=== PATIENT | male | born 1960 | race Caucasian/White ===

== ENCOUNTER 2017-09-23 04:51 | Observation (INO) | payer BC ==
[2017-09-23] MEDS ORDERED: NITROGLYCERIN OINT 1 INCH/GM PACKET TOPICAL STA (05:04)
[2017-09-23] MEDS ORDERED: ASPIRIN 81 MG PO STA (05:04)
--- NOTE | 2017-09-23 05:07 | ED ---
General Adult HPI - General Chief complaint: Chest Pain Stated complaint: Chest Pain Time Seen by Provider: 09/23/17 04:51 Source: patient, RN notes reviewed Mode of arrival: wheelchair Limitations: no limitations - History of Present Illness Initial comments: This a 56-year-old male who has a past medical history significant for coronary artery disease. Patient states she had a cardiac cath about 5 years ago they told him he had a 78% blockage. Patient states he also has a strong family history of heart disease. Patient denies diabetes and high blood pressure however he states he has been spoken to about his cholesterol and is trying to control with his diet. Patient states that about midnight tonight he started having chest pain radiated to his left shoulder and it came in waves with the most intense pain lasting 5 seconds. Patient states once that goes away he has a constant pressure on his chest with some shortness of breath. Patient denies any diaphoresis. Patient denies any nausea. Patient denies abdominal pain patient denies vomiting or diarrhea recently. Patient denies any recent fever chills or cough. Patient denies a headache. Patient denies numbness weakness. Patient denies lightheadedness dizziness or near syncopal episode. - Related Data Home Medications Medication Instructions Recorded Confirmed Gabapentin [Neurontin] 800 mg PO TID 01/26/16 01/26/16 Hydrocodone/Acetaminophen 1 tab PO Q6HR PRN 01/26/16 01/26/16 [Hydrocodon-Acetaminophn 10-325] Previous Rx's Medication Instructions Recorded Atorvastatin [Lipitor] 20 mg PO HS #30 tablet 01/28/16 Allergies Allergy/AdvReac Type Severity Reaction Status Date / Time Penicillins Allergy Unknown Verified 09/23/17 05:00 Childhood Review of Systems ROS Statement: Those systems with pertinent positive or pertinent negative responses have been documented in the HPI. ROS Other: All systems not noted in ROS Statement are negative. Past Medical History Past Medical History: Myocardial Infarction ([place]) Additional Past Medical History / Comment(s): scarlet fever, back pain Last Myocardial Infarction Date:: 2011 History of Any Multi-Drug Resistant Organisms: None Reported Past Surgical History: Orthopedic Surgery Additional Past Surgical History / Comment(s): vasectomy, bilateral rotator cuff repair, heart catheterization Past Anesthesia/Blood Transfusion Reactions: No Reported Reaction Past Psychological History: No Psychological Hx Reported Smoking Status: Former smoker Past Alcohol Use History: Occasional Past Drug Use History: None Reported - Past Family History Father Additional Family Medical History / Comment(s): Father at age 93 after myocardial infarction with history of previous myocardial infarctions. Mother Additional Family Medical History / Comment(s): Mother at age 56 from asthma attack and possibly having a myocardial infarction at the same time. Brother(s) Additional Family Medical History / Comment(s): He has one brother with no major medical problems. Patient does not have any sisters. He has one son and one daughter with no major medical problems. General Exam - General Exam Comments Initial Comments: GENERAL: Patient is well-developed and well-nourished. Patient is nontoxic and well- hydrated and is in mild distress. ENT: Neck is soft and supple. No significant lymphadenopathy is noted. Oropharynx is clear. Moist mucous membranes. Neck has full range of motion without eliciting any pain. EYES: The sclera were anicteric and conjunctiva were pink and moist. Extraocular movements were intact and pupils were equal round and reactive to light. Eyelids were unremarkable. PULMONARY: Unlabored respirations. Good breath sounds bilaterally. No audible rales rhonchi or wheezing was noted. CARDIOVASCULAR: There is a regular rate and rhythm without any murmurs gallops or rubs. ABDOMEN: Soft and nontender with normal bowel sounds. No palpable organomegaly was noted. There is no palpable pulsatile mass. SKIN: Skin is clear with no lesions or rashes and otherwise unremarkable. NEUROLOGIC: Patient is alert and oriented x3. Cranial nerves II through XII are grossly intact. Motor and sensory are also intact. Normal speech, volume and content. Symmetrical smile. MUSCULOSKELETAL: Normal extremities with adequate strength and full range of motion. LYMPHATICS: No significant lymphadenopathy is noted PSYCHIATRIC: Normal psychiatric evaluation. Normal interpersonal interactions appears functionally intact in deals appropriately with others. No signs of depression. No signs of anxiety. Limitations: no limitations Course Vital Signs 09/23/17 09/23/17 09/23/17 04:57 05:03 05:55 Temperature 97.2 F L 98.4 F Pulse Rate 76 80 Pulse Rate [ 68 Rn Circulating ] Respiratory 15 18 Rate Blood Pressure 175/86 127/77 O2 Sat by Pulse 98 98 Oximetry Medical Decision Making - Medical Decision Making EKG shows normal sinus rhythm at 75 bpm SC interval is on a 64 QRS is 96 Q-T intervals 386 QTC is 431 per patient's EKG shows no ST segment elevation or depression or T wave abnormalities are noted. Chest x-ray shows no acute abnormality. Patient stated the Nitropaste seem to relieve some of the pressure in his chest. Patient was drinking some unstable angina so I gave him heparin. I spoke with the primary medical care doctor and I admitted the patient I wrote admitting orders I consult cardiology and I continue the heparin Nitropaste and aspirin on the floor. - Lab Data Result diagrams: 09/23/17 05:04 09/23/17 05:04 Lab Results 09/23/17 09/23/17 09/23/17 Range/Units 05:04 05:04 05:04 WBC 8.6 (3.8-10.6) k/uL RBC 5.01 (4.30-5.90) m/uL Hgb 14.5 (13.0-17.5) gm/dL Hct 44.9 (39.0-53.0) % MCV 89.6 (80.0-100.0) fL MCH 28.9 (25.0-35.0) pg MCHC 32.3 (31.0-37.0) g/dL RDW 14.3 (11.5-15.5) % Plt Count 217 (150-450) k/uL Neutrophils % 56 % Lymphocytes % 35 % Monocytes % 4 % Eosinophils % 2 % Basophils % 1 % Neutrophils # 4.8 (1.3-7.7) k/uL Lymphocytes # 3.1 (1.0-4.8) k/uL Monocytes # 0.4 (0-1.0) k/uL Eosinophils # 0.2 (0-0.7) k/uL Basophils # 0.0 (0-0.2) k/uL PT (9.0-12.0) sec INR (<1.2) APTT (22.0-30.0) sec Sodium 140 (137-145) mmol/L Potassium 4.5 (3.5-5.1) mmol/L Chloride 107 (98-107) mmol/L Carbon Dioxide 23 (22-30) mmol/L Anion Gap 10 mmol/L BUN 16 (9-20) mg/dL Creatinine 0.83 (0.66-1.25) mg/dL Est GFR (MDRD) Af Amer >60 (>60 ml/min/1.73 sqM) Est GFR (MDRD) Non-Af >60 (>60 ml/min/1.73 sqM) Glucose 131 H (74-99) mg/dL Calcium 9.6 (8.4-10.2) mg/dL Magnesium 2.0 (1.6-2.3) mg/dL Total Bilirubin 0.5 (0.2-1.3) mg/dL AST 24 (17-59) U/L ALT 28 (21-72) U/L Alkaline Phosphatase 84 (38-126) U/L Total Creatine Kinase 97 (55-170) U/L CK-MB (CK-2) 0.9 (0.0-2.4) ng/mL CK-MB (CK-2) Rel Index 0.9 Troponin I <0.012 (0.000-0.034) ng/mL Total Protein 6.9 (6.3-8.2) g/dL Albumin 4.2 (3.5-5.0) g/dL 09/23/17 Range/Units 05:04 WBC (3.8-10.6) k/uL RBC (4.30-5.90) m/uL Hgb (13.0-17.5) gm/dL Hct (39.0-53.0) % MCV (80.0-100.0) fL MCH (25.0-35.0) pg MCHC (31.0-37.0) g/dL RDW (11.5-15.5) % Plt Count (150-450) k/uL Neutrophils % % Lymphocytes % % Monocytes % % Eosinophils % % Basophils % % Neutrophils # (1.3-7.7) k/uL Lymphocytes # (1.0-4.8) k/uL Monocytes # (0-1.0) k/uL Eosinophils # (0-0.7) k/uL Basophils # (0-0.2) k/uL PT 9.7 (9.0-12.0) sec INR 1.0 (<1.2) APTT 23.4 (22.0-30.0) sec Sodium (137-145) mmol/L Potassium (3.5-5.1) mmol/L Chloride (98-107) mmol/L Carbon Dioxide (22-30) mmol/L Anion Gap mmol/L BUN (9-20) mg/dL Creatinine (0.66-1.25) mg/dL Est GFR (MDRD) Af Amer (>60 ml/min/1.73 sqM) Est GFR (MDRD) Non-Af (>60 ml/min/1.73 sqM) Glucose (74-99) mg/dL Calcium (8.4-10.2) mg/dL Magnesium (1.6-2.3) mg/dL Total Bilirubin (0.2-1.3) mg/dL AST (17-59) U/L ALT (21-72) U/L Alkaline Phosphatase (38-126) U/L Total Creatine Kinase (55-170) U/L CK-MB (CK-2) (0.0-2.4) ng/mL CK-MB (CK-2) Rel Index Troponin I (0.000-0.034) ng/mL Total Protein (6.3-8.2) g/dL Albumin (3.5-5.0) g/dL Critical Care Time Critical Care Time: Yes Total Critical Care Time: 35 Disposition Clinical Impression: Unstable angina Disposition: ADMITTED IP TO THIS HOSP Referrals: Ross De La Garza DO [Primary Care Provider] - 1-2 days Time of Disposition: 06:20
[2017-09-23 05:24] LABS: Basophils % (A) 1 %; Eosinophils # (A) 0.2 k/uL (0-0.7); Eosinophils % (A) 2 %; HCT 44.9 % (39.0-53.0); HGB 14.5 gm/dL (13.0-17.5); Lymphocytes # (A) 3.1 k/uL (1.0-4.8); Lymphocytes % (A) 35 %; MCH 28.9 pg (25.0-35.0); MCHC 32.3 g/dL (31.0-37.0); MCV 89.6 fL (80.0-100.0); Mean Platelet Volume 7.4; Monocytes # (A) 0.4 k/uL (0-1.0); Monocytes % (A) 4 %; Neutrophils # (A) 4.8 k/uL (1.3-7.7); Neutrophils % (A) 56 %; Platelet Count 217 k/uL (150-450); RBC 5.01 m/uL (4.30-5.90); RDW 14.3 % (11.5-15.5); WBC 8.6 k/uL (3.8-10.6)
[2017-09-23 05:37] LABS: ALT 28 U/L (21-72); AST 24 U/L (17-59); Albumin 4.2 g/dL (3.5-5.0); Alkaline Phosphatase 84 U/L (38-126); Anion Gap 10 mmol/L; Blood Urea Nitrogen 16 mg/dL (9-20); Calcium 9.6 mg/dL (8.4-10.2); Carbon Dioxide 23 mmol/L (22-30); Chloride 107 mmol/L (98-107); Glucose 131 mg/dL (74-99); Potassium 4.5 mmol/L (3.5-5.1); Sodium 140 mmol/L (137-145); Total Bilirubin 0.5 mg/dL (0.2-1.3); Total Protein 6.9 g/dL (6.3-8.2)
[2017-09-23 05:55] LABS: Creatine Kinase 97 U/L (55-170)
--- NOTE | 2017-09-23 05:58 | XR ---
INDICATION: Chest pain COMPARISON: CXR 01/26/16. FINDINGS: Frontal and lateral views of the chest are obtained. The cardiomediastinal silhouette is within normal limits. Pulmonary vascularity is normal. There is no airspace consolidation, pleural effusion, or pneumothorax. There are no acute osseous findings. There has been prior right rotator cuff repair. IMPRESSION: No radiographic evidence of acute cardiopulmonary disease.
[2017-09-23 06:08] LABS: Creatine Kinase MB 0.9 ng/mL (0.0-2.4); Troponin I <0.012 ng/mL (0.000-0.034)
[2017-09-23 06:09] LABS: Partial Thromboplastin Time 23.4 sec (22.0-30.0); Prothrombin Time 9.7 sec (9.0-12.0)
[2017-09-23] MEDS ORDERED: HEPARIN SODIUM,PORCINE 5,000 UNIT/ML 1 ML VIAL IV ONE (06:18)
[2017-09-23] MEDS ORDERED: NITROGLYCERIN SL TABS 0.4 MG TAB SUBLINGUAL PRN (06:20)
[2017-09-23] MEDS ORDERED: HEPARIN SOD,PORK IN 0.45% NACL 25,000 UNIT in 0.45% NACL 1 500ML.BAG IV SCH (06:30)
[2017-09-23] MEDS ORDERED: HEPARIN SODIUM,PORCINE 5,000 UNIT/ML 1 ML VIAL IV PRN (06:49)
[2017-09-23 07:54] LABS: Creatine Kinase 85 U/L (55-170)
[2017-09-23 08:05] LABS: Creatine Kinase MB 0.9 ng/mL (0.0-2.4); Troponin I <0.012 ng/mL (0.000-0.034)
[2017-09-23] MEDS: NITROGLYCERIN OINT 1 INCH/GM PACKET TOPICAL SCH ×2 (12:15→18:57)
--- NOTE | 2017-09-23 12:50 | P.HPIM ---
History of Present Illness H&P Date: 09/23/17 This is a 56-year-old male one of Dr. De La Garza. 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 in the morning and had a twelve-lead EKG that did not show any evidence of acute abnormalities, patient however was given nitroglycerin paste that made his pain go away and the patient was started on heparin drip, aspirin 325 mg orally once every day, he was admitted to the hospital for evaluation, he was seen in consultation by cardiology it was recommended to keep the patient for stress test tomorrow morning. Review of Systems Constitutional: Reports chronic pain, Denies anorexia, Denies chronic headaches , Denies lethargy, Denies malaise, Denies weakness, Denies weight gain, Denies weight loss Eyes: denies blurred vision, denies bulging eye, denies decreased vision Ears: deny: decreased hearing Ears, nose, mouth and throat: Denies dysphagia, Denies neck fullness/pressure, Denies nose pain, Denies swelling in throat Cardiovascular: Reports chest pain, Reports decreased exercise tolerance, Reports dyspnea on exertion, Reports shortness of breath, Denies high blood pressure, Denies phlebitis, Denies rapid heart beat, Denies syncope Respiratory: Denies congestion, Denies home oxygen, Denies sleep apnea, Denies snoring, Denies wheezing Gastrointestinal: Denies abdominal pain, Denies bloating, Denies BRBPR, Denies excessive gas, Denies melena, Denies nausea, Denies vomiting Musculoskeletal: Reports leg numbness/tingling, Denies myalgias Musculoskeletal: absent: ankle pain, ankle stiffness, ankle swelling, elbow pain , elbow stiffness, elbow swelling, foot pain, foot stiffness, foot swelling, hand pain, hand stiffness, hand swelling, hip pain, hip stiffness, hip swelling , knee pain, knee stiffness, knee swelling, shoulder pain, shoulder stiffness, shoulder swelling, wrist pain, wrist stiffness, wrist swelling Integumentary: Denies pruritus, Denies rash Neurological: Reports numbness, Reports paresthesias, Denies weakness Psychiatric: Denies anxiety, Denies depression Endocrine: Denies fatigue, Denies weight change Past Medical History Past Medical History: Hyperlipidemia, Myocardial Infarction ([place]), Neurologic Disorder (peripheral neuropathy.), Osteoarthritis ([place]) Additional Past Medical History / Comment(s): scarlet fever, back pain due to degenerative disc disease of the lumbar spine. Last Myocardial Infarction Date:: 2011 History of Any Multi-Drug Resistant Organisms: None Reported Past Surgical History: Orthopedic Surgery Additional Past Surgical History / Comment(s): vasectomy, bilateral rotator cuff repair, heart catheterization Past Anesthesia/Blood Transfusion Reactions: No Reported Reaction Past Psychological History: No Psychological Hx Reported Smoking Status: Former smoker Past Alcohol Use History: Occasional Additional Past Alcohol Use History / Comment(s): Patient has been a smoker one pack per day since he was 14 years of age. Patient quit smoking 3 weeks ago. He denies any marijuana or street drug use. He uses alcohol on a rare basis. He drives a gasoline tanker. Past Drug Use History: None Reported - Past Family History Father Additional Family Medical History / Comment(s): Father at age 93 after myocardial infarction with history of previous myocardial infarctions. Mother Additional Family Medical History / Comment(s): Mother at age 56 from asthma attack and possibly having a myocardial infarction at the same time. Brother(s) Additional Family Medical History / Comment(s): He has one brother with no major medical problems. Patient does not have any sisters. He has one son and one daughter with no major medical problems. Medications and Allergies Home Medications Medication Instructions Recorded Confirmed Type Gabapentin [Neurontin] 800 mg PO TID 01/26/16 09/23/17 History Hydrocodone/Acetaminophen 1 tab PO QID PRN 01/26/16 09/23/17 History [Hydrocodon-Acetaminophn 10-325] Allergies Allergy/AdvReac Type Severity Reaction Status Date / Time Penicillins Allergy Unknown Verified 09/23/17 08:20 Childhood Physical Exam Vitals: Vital Signs Temp Pulse Pulse Pulse Resp BP BP 09/23/17 06:51 97.8 F 65 16 118/61 09/23/17 06:42 67 18 120/62 09/23/17 05:55 98.4 F 80 18 127/77 09/23/17 05:03 68 09/23/17 04:57 97.2 F L 76 15 175/86 Pulse Ox 09/23/17 06:51 97 09/23/17 06:42 95 09/23/17 05:55 98 09/23/17 05:03 09/23/17 04:57 98 Intake and Output 09/22/17 09/23/17 09/23/17 22:59 06:59 14:59 Other: Weight 87.09 kg - Constitutional General appearance: average body habitus, no acute distress - EENT Eyes: anicteric sclerae, EOMI, PERRLA, no ptosis, no scleral icterus, normal appearance ENT: hearing grossly normal, NA/AT, normal oropharynx, no thrush Ears: bilateral: normal - Neck Neck: no lymphadenopathy, normal ROM, no rigidity, no stridor, no thyromegaly Carotids: bilateral: upstroke normal Thyroid: bilateral: normal size - Respiratory Respiratory: bilateral: diminished, negative: dullness, rales, rhonchi, wheezing , prolonged expiration - Cardiovascular Rhythm: regular Heart sounds: normal: S1, S2 Abnormal Heart Sounds: no systolic murmur, no S3 Gallop, no S4 Gallop - Gastrointestinal General gastrointestinal: normal bowel sounds, soft, no tenderness, no umbilical hernia, no ventral hernia - Integumentary Integumentary: normal, normal turgor - Neurologic Neurologic: CNII-XII intact - Musculoskeletal Musculoskeletal: strength equal bilaterally - Psychiatric Psychiatric: A&O x's 3, appropriate affect, intact judgment & insight Results CBC & Chem 7: 09/23/17 05:04 09/23/17 05:04 Labs: Abnormal Lab Results - Last 24 Hours (Table) 09/23/17 Range/Units 05:04 Glucose 131 H (74-99) mg/dL Thrombosis Risk Factor Assmnt - DVT/VTE Prophylaxis DVT/VTE Prophylaxis: Pharmacologic Prophylaxis ordered - Choose All That Apply Any of the Below Risk Factors Present?: Yes Each Factor Represents 1 point: Age 41-60 years Thrombosis Risk Factor Assessment Total Risk Factor Score: 1 Thrombosis Risk Factor Assessment Level: Low Risk Assessment and Plan Assessment: Assessment and plan: 1. Chest pain in a patient with a prior history of mild CAD . Patient will be kept on heparin drip until his cardiac enzymes are negative, continue aspirin 325 mg orally once every day, continue nitroglycerin paste 1 inch every 6 hours for the next 24 hours, if the cardiac enzymes are negative patient will be scheduled for a stress test tomorrow morning. 2. History of degenerative disc disease of the lumbar spine. Continue patient on [place] as ordered. 3. Peripheral neuropathy. Continue patient on gabapentin 800 mg orally 3 times every day. 4. History of scarlet fever. Stable. 5. DVT prophylaxis. Currently on heparin drip. 6. GI prophylaxis. Continue PPI. 7. Observation.
[2017-09-23] MEDS: GABAPENTIN 400 MG CAP PO SCH ×2 (12:54→22:45)
[2017-09-23] MEDS: HYDROcodone/APAP 10-325MG 1 EACH TAB PO PRN ×2 (14:01→20:51)
--- NOTE | 2017-09-23 15:41 | P.CRDCN ---
History of Present Illness Consult date: 09/23/17 Consult reason: chest pain History of present illness: Mr. Butcher is a pleasant 56-year-old male past medical history significant for mild non-obstructive triple vessel coronary artery disease and dyslipidemia. He has seen Dr. Moy in the office. We have been asked to see him in consultation for complaints of chest pain. He states last night while he was at work he developed pain in the left precordial region that radiated down his left arm and into his left shoulder. The pain was associated with shortness of breath, dizziness and nausea. He denies palpitations, vomiting or diaphoresis. He has a fairly active job and was exerting himself when he first felt the pain. He sat down to rest and the pain eventually went away. The pain was completely resolved by the time he got to the ED for evaluation. He describes a second episode when he got up from the stretcher to walk to his bed on the third floor. The discomfort again went away after he sat and rested. Telemetry tracings have been unremarkable. EKG reveals sinus mechanism with no acute ST or T-wave abnormalities. Chest xray is negative for an acute cardiopulmonary process. Laboratory data reviewed, hgb 14.5, plt 217, potassium 4.5, magnesium 2.0, creatinine 0.83, cardiac enzymes negative x2. Current cardiac medications include lipitor 20 mg daily. Most recent stress test was performed 01/2016 was negative for stress induced ischemia. Most recent cardiac catheterization performed 2012 revealed mid LAD 20-40% non- obstructive disease, 30-40% diagonal plaque, 30-40% proximal ramus disease and 30% distal RCA disease. Review of Systems At the time of my exam: CONSTITUTIONAL: Denies fever. Denies chills. EYES: Denies blurred vision. Denies vision changes. Denies eye pain. EARS, NOSE, MOUTH & THROAT: Denies headache. Denies sore throat. Denies ear pain. CARDIOVASCULAR: Denies chest pain. Denies shortness of breath. Denies orthopnea. Denies PND. Denies palpitations. RESPIRATORY: Denies cough. GASTROINTESTINAL: Denies abdominal pain. Denies diarrhea. Denies constipation. Denies nausea. Denies vomiting. MUSCULOSKELETAL: Denies myalgias. INTEGUMENTARY: Denies pruitis. Denies rash. NEUROLOGIC: Denies numbness. Denies tingling. Denies weakness. PSYCHIATRIC: Denies anxiety. Denies depression. ENDOCRINE: Denies fatigue. Denies weight change. Denies polydipsia. Denies polyurina. GENITOURINARY: Denies burning, hematuria or urgency with micturation. HEMATOLOGIC: Denies history of anemia. Denies bleeding. Past Medical History Past Medical History: Hyperlipidemia, Myocardial Infarction (IA), Neurologic Disorder (peripheral neuropathy.), Osteoarthritis (OA) Additional Past Medical History / Comment(s): scarlet fever, back pain due to degenerative disc disease of the lumbar spine. Last Myocardial Infarction Date:: 2011 History of Any Multi-Drug Resistant Organisms: None Reported Past Surgical History: Orthopedic Surgery Additional Past Surgical History / Comment(s): vasectomy, bilateral rotator cuff repair, heart catheterization Past Anesthesia/Blood Transfusion Reactions: No Reported Reaction Past Psychological History: No Psychological Hx Reported Smoking Status: Former smoker Past Alcohol Use History: Occasional Additional Past Alcohol Use History / Comment(s): Patient has been a smoker one pack per day since he was 14 years of age. Patient quit smoking 3 weeks ago. He denies any marijuana or street drug use. He uses alcohol on a rare basis. He drives a gasoline tanker. Past Drug Use History: None Reported - Past Family History Father Additional Family Medical History / Comment(s): Father at age 93 after myocardial infarction with history of previous myocardial infarctions. Mother Additional Family Medical History / Comment(s): Mother at age 56 from asthma attack and possibly having a myocardial infarction at the same time. Brother(s) Additional Family Medical History / Comment(s): He has one brother with no major medical problems. Patient does not have any sisters. He has one son and one daughter with no major medical problems. Medications and Allergies Home Medications Medication Instructions Recorded Confirmed Type Gabapentin [Neurontin] 800 mg PO TID 01/26/16 09/23/17 History Hydrocodone/Acetaminophen 1 tab PO QID PRN 01/26/16 09/23/17 History [Hydrocodon-Acetaminophn 10-325] Allergies Allergy/AdvReac Type Severity Reaction Status Date / Time Penicillins Allergy Unknown Verified 09/23/17 08:20 Childhood Physical Exam Vitals: Vital Signs Temp Pulse Pulse Pulse Resp BP BP 09/23/17 12:00 97.9 F 70 16 111/63 09/23/17 06:51 97.8 F 65 16 118/61 09/23/17 06:42 67 18 120/62 09/23/17 05:55 98.4 F 80 18 127/77 09/23/17 05:03 68 09/23/17 04:57 97.2 F L 76 15 175/86 Pulse Ox 09/23/17 12:00 95 09/23/17 06:51 97 09/23/17 06:42 95 09/23/17 05:55 98 09/23/17 05:03 09/23/17 04:57 98 Intake and Output 09/22/17 09/23/17 09/23/17 22:59 06:59 14:59 Other: Voiding Method Toilet Weight 87.09 kg Blood pressure 111/63 heart rate 70 afebrile GENERAL: This is a 56-year-old male in no apparent distress at the time of my examination. HEENT: Head is atraumatic, normocephalic. Pupils are equal, round. Sclerae anicteric. Conjunctivae are clear. Mucous membranes of the mouth are moist. Neck is supple. There is no jugular venous distention. No carotid bruit is heard. LUNGS: Clear to auscultation no wheezes, rales or rhonchi. No chest wall tenderness is noted on palpation or with deep breathing. HEART: Regular rate and rhythm with systolic ejection murmur at the base, no rubs or gallops. S1 and S2 heard. ABDOMEN: Soft, nontender. Bowel sounds are heard. No organomegaly noted. EXTREMITIES: No evidence of peripheral edema and no calf tenderness noted. VASCULAR: Radial and dorsalis pedis pulses palpated, no evidence of clubbing. NEUROLOGIC: Patient is awake, alert and oriented x3. Results 09/23/17 05:04 09/23/17 05:04 Cardiac Enzymes 09/23/17 09/23/17 09/23/17 Range/Units 05:04 05:04 07:10 AST 24 (17-59) U/L CK-MB (CK-2) 0.9 0.9 (0.0-2.4) ng/mL Troponin I <0.012 <0.012 (0.000-0.034) ng/mL Coagulation 09/23/17 09/23/17 Range/Units 05:04 12:13 PT 9.7 (9.0-12.0) sec APTT 23.4 28.2 (22.0-30.0) sec CBC 09/23/17 Range/Units 05:04 WBC 8.6 (3.8-10.6) k/uL RBC 5.01 (4.30-5.90) m/uL Hgb 14.5 (13.0-17.5) gm/dL Hct 44.9 (39.0-53.0) % Plt Count 217 (150-450) k/uL Comprehensive Metabolic Panel 09/23/17 Range/Units 05:04 Sodium 140 (137-145) mmol/L Potassium 4.5 (3.5-5.1) mmol/L Chloride 107 (98-107) mmol/L Carbon Dioxide 23 (22-30) mmol/L BUN 16 (9-20) mg/dL Creatinine 0.83 (0.66-1.25) mg/dL Glucose 131 H (74-99) mg/dL Calcium 9.6 (8.4-10.2) mg/dL AST 24 (17-59) U/L ALT 28 (21-72) U/L Alkaline Phosphatase 84 (38-126) U/L Total Protein 6.9 (6.3-8.2) g/dL Albumin 4.2 (3.5-5.0) g/dL Current Medications Generic Name Dose Route Start Last Admin Trade Name Freq PRN Reason Stop Dose Admin Hydrocodone Bitart/Acetaminophen 1 each 09/23/17 12:09 09/23/17 14:01 [place] 10 PO 1 each QID PRN Administration Pain Aspirin 325 mg 09/24/17 09:00 Aspirin PO DAILY [facility] Atorvastatin Calcium 20 mg 09/23/17 21:00 Lipitor PO HS ARTHUR Gabapentin 800 mg 09/23/17 16:00 09/23/17 12:54 Neurontin PO 800 mg TID [facility] Administration Heparin Sodium (Porcine) 0 unit 09/23/17 06:49 Heparin IV PER PROTOCOL PRN Low PTT Protocol Nitroglycerin 1 inch 09/23/17 12:00 09/23/17 12:15 Nitro-Bid Oint TOPICAL Not Given Q6HR [facility] Nitroglycerin 0.4 mg 09/23/17 06:20 Nitrostat SUBLINGUAL Q5M PRN Chest Pain Intake and Output 09/22/17 09/23/17 09/23/17 22:59 06:59 14:59 Other: Voiding Method Toilet Weight 87.09 kg 09/23/17 05:04 09/23/17 05:04 Assessment and Plan Assessment: ASSESSMENT 1. Unstable angina 2. History of known mild triple vessel disease from 2013 cath 3. Dyslipidema PLAN Continue to obtain serial cardiac enzymes and repeat EKG in the morning. Obtain 2D echocardiogram and doppler study to assess cardiac structure and function. Check lipid panel in the morning. NPO after midnight. Further recommendations to follow based upon clinical course. Thank you kindly for this consultation. Nurse Practitioner note has been reviewed, I agree with a documented findings and plan of care. Patient was seen and examined.
[2017-09-23 17:02] LABS: Creatine Kinase 62 U/L (55-170)
[2017-09-23 17:16] LABS: Creatine Kinase MB 0.5 ng/mL (0.0-2.4); Troponin I <0.012 ng/mL (0.000-0.034)
[2017-09-23] MEDS ORDERED: ATORVASTATIN 20 MG TAB PO SCH (21:00)
[2017-09-24 06:35] VITALS: RESP 16
[2017-09-24 06:54] LABS: Basophils % (A) 1 %; Eosinophils # (A) 0.1 k/uL (0-0.7); Eosinophils % (A) 2 %; HCT 45.3 % (39.0-53.0); HGB 14.5 gm/dL (13.0-17.5); Lymphocytes # (A) 2.5 k/uL (1.0-4.8); Lymphocytes % (A) 43 %; MCH 28.9 pg (25.0-35.0); MCHC 32.1 g/dL (31.0-37.0); MCV 90.2 fL (80.0-100.0); Mean Platelet Volume 8.1; Monocytes # (A) 0.3 k/uL (0-1.0); Monocytes % (A) 5 %; Neutrophils # (A) 2.9 k/uL (1.3-7.7); Neutrophils % (A) 48 %; Platelet Count 210 k/uL (150-450); RBC 5.02 m/uL (4.30-5.90); RDW 14.5 % (11.5-15.5); WBC 5.9 k/uL (3.8-10.6)
[2017-09-24 07:29] LABS: ALT 28 U/L (21-72); AST 20 U/L (17-59); Albumin 3.7 g/dL (3.5-5.0); Alkaline Phosphatase 72 U/L (38-126); Anion Gap 9 mmol/L; Blood Urea Nitrogen 19 mg/dL (9-20); Calcium 9.2 mg/dL (8.4-10.2); Carbon Dioxide 24 mmol/L (22-30); Chloride 106 mmol/L (98-107); Cholesterol 195 mg/dL (<200); Glucose 134 mg/dL (74-99); HDL Cholesterol 27 mg/dL (40-60); LDL Cholesterol,Calculated 114 mg/dL (0-99); Potassium 4.9 mmol/L (3.5-5.1); Sodium 139 mmol/L (137-145); Total Bilirubin 0.4 mg/dL (0.2-1.3); Total Protein 6.2 g/dL (6.3-8.2); Triglycerides 271 mg/dL (<150)
[2017-09-24] MEDS: NITROGLYCERIN OINT 1 INCH/GM PACKET TOPICAL SCH ×2 (07:32→11:33)
[2017-09-24] MEDS: HYDROcodone/APAP 10-325MG 1 EACH TAB PO PRN (07:36)
[2017-09-24] MEDS: GABAPENTIN 400 MG CAP PO SCH (07:36)
[2017-09-24] MEDS ORDERED: ASPIRIN 325 MG TAB PO SCH (09:00)
[2017-09-24] MEDS ORDERED: ASPIRIN 81 MG PO SCH (09:00)
--- NOTE | 2017-09-24 11:23 | ECHOF ---
Referral Reason:chest pain MEASUREMENTS -------- HEIGHT: 170.2 cm WEIGHT: 87.1 kg BP: 112/67 RVIDd: 3.1 cm (< 3.3) IVSd: 1.3 cm (0.6 - 1.1) LVIDd: 4.0 cm (3.9 - 5.3) LVPWd: 1.3 cm (0.6 - 1.1) IVSs: 1.6 cm LVIDs: 2.8 cm LVPWs: 1.7 cm LA Diam: 3.6 cm (2.7 - 3.8) LAESV Index (A-L): 28.13 ml/m Ao Diam: 2.7 cm (2.0 - 3.7) AV Cusp: 2.0 cm (1.5 - 2.6) MV EXCURSION: 11.714 mm (> 18.000) MV EF SLOPE: 49 mm/s (70 - 150) EPSS: 0.5 cm MV E Ramin: 1.08 m/s MV DecT: 201 ms MV A Ramin: 0.86 m/s MV E/A Ratio: 1.26 AV maxP.23 mmHg AV meanP.43 mmHg FINDINGS -------- Sinus rhythm. This was a technically good study. The left ventricular size is normal. There is mild concentric left ventricular hypertrophy. Overa ll left ventricular systolic function is normal with, an EF between 55 - 60 %. The right ventricle is normal in size and function. Normal LA size by volume 22+/-6 ml/m2. The right atrium is normal in size. The aortic valve is trileaflet, and appears structurally normal. No aortic stenosis or regurgitation. Peak/mean gradient across the Aortic Valve is 13.23mmHg / 6.43mmHg. The mitral valve is normal. There is trace mitral regurgitation. The tricuspid valve appears structurally normal. There is no pulmonic regurgitation present. The aortic root size is normal. Normal inferior vena cava with normal inspiratory collapse consistent with estimated right atrial pre ssure of 5 mmHg. There is no pericardial effusion. CONCLUSIONS -------- 1. Sinus rhythm. 2. This was a technically good study. 3. The left ventricular size is normal. 4. There is mild concentric left ventricular hypertrophy. 5. Overall left ventricular systolic function is normal with, an EF between 55 - 60 %. 6. Normal LA size by volume 22+/-6 ml/m2. 7. The aortic valve is trileaflet, and appears structurally normal. No aortic stenosis or regurgitati on. 8. Peak/mean gradient across the Aortic Valve is 13.23mmHg / 6.43mmHg. 9. There is trace mitral regurgitation. 10. The tricuspid valve appears structurally normal. 11. There is no pulmonic regurgitation present. 12. The aortic root size is normal. 13. Normal inferior vena cava with normal inspiratory collapse consistent with estimated right atrial pressure of 5 mmHg. 14. There is no pericardial effusion. RN SURGICAL: Lisa Powers RDCS
--- NOTE | 2017-09-24 11:24 | ECHOS ---
STRESS ECHOCARDIOGRAM INDICATIONS: [place]/Chest pain. MEDICATIONS: Gabapentin, hydrocodone. BASELINE HEART RATE: 64 BASELINE BLOOD PRESSURE: 104/64 MAXIMUM HEART RATE: 143 MAXIMUM BLOOD PRESSURE: 188/89 85% MPHR: 138 100% MPHR: 162 METS: 11.3 MAXIMUM STAGE REACHED: 4 TOTAL EXERCISE TIME: 10:00 CLINICAL INFORMATION: Baseline rhythm is sinus mechanism, rate 64, normal axis and intervals, poor progression. Baseline blood pressure 104/64 mmHg. Patient exercised on [place] protocol for 10 minute reaching peak rate of 143 beats per minute, which is equal to 88% maximum predicted heart rate. Blood pressure 188/89 mmHg. Test was terminated due to fatigue. There were no chest pains. Electrocardiograph monitoring revealed [address]-segment depression that resolved in recovery. FINDINGS: Baseline echocardiogram revealed normal LV function. At peak exercise, there was normal wall motion and augmentation with no hypokinesis or dyskinesis. CONCLUSION: 1. Good exercise tolerance with borderline positive electrocardiogram stress testing. 2. Normal stress echocardiogram with no evidence of stress-induced ischemia. MMODL / IJN: [id number] /
[2017-09-24 11:43] VITALS: BP 123/55; PULSE 72; TEMP 97.1
--- NOTE | 2017-09-24 12:10 | P.DS ---
Providers Date of admission: 09/23/17 06:20 Expected date of discharge: 09/24/17 Attending physician: Terese Mendoza Consults: 09/23/17 06:20 Consult Physician Urgent Consulting Provider: [facility] Consult Reason/Comments: Unstable angina Do you want consulting provider notified?: Yes Primary care physician: [facility] Course: This is a 56-year-old male one of Dr. De La Garza. 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, when suddenly developed to have a left-sided chest pain radiating to the left shoulder down to the left arm associated with increased shortness breath, he ended up driving himself to the ER at [facility] in the morning and had a twelve-lead EKG that did not show any evidence of acute abnormalities, patient however was given nitroglycerin paste that made his pain go away and the patient was started on heparin drip, aspirin 325 mg orally once every day, he was admitted to the hospital for evaluation, he was seen in consultation by cardiology it was recommended to keep the patient for stress test tomorrow morning. 09/24: Patient underwent stress testing that was negative and patient has been cleared for discharge by Dr. Moy. He would like to see the patient in the office in 2-3 weeks. Patient will be discharged today in stable condition. Discharge diagnoses: 1. Chest pain in a patient with a prior history of mild CAD 2. History of degenerative disc disease of the lumbar spine. 3. Peripheral neuropathy. 4. History of scarlet fever. Stable. Discharge plan: Return home Impression and plan of care have been directed as dictated by the signing physician. Rhianna Avelar nurse practitioner acting as scribe for signing physician. Patient Condition at Discharge: Good Plan - Discharge Summary New Discharge Prescriptions: New Aspirin 81 mg PO DAILY chew Atorvastatin [Lipitor] 20 mg PO HS #30 tab Aspirin [Adult Low Dose Aspirin EC] 81 mg PO DAILY #30 tablet. Atorvastatin [Lipitor] 20 mg PO HS #30 tab Continue Gabapentin [Neurontin] 800 mg PO TID Hydrocodone/Acetaminophen [Hydrocodone-Acetamin 10-325 mg] 1 tab PO QID PRN PRN Reason: Pain Discharge Medication List Gabapentin [Neurontin] 800 mg PO TID 01/26/16 [History] Hydrocodone/Acetaminophen [Hydrocodone-Acetamin 10-325 mg] 1 tab PO QID PRN [History] Aspirin 81 mg PO DAILY chew 09/24/17 [Rx] Aspirin [Adult Low Dose Aspirin EC] 81 mg PO DAILY #30 tablet. 09/24/17 [Rx] Atorvastatin [Lipitor] 20 mg PO HS #30 tab 09/24/17 [Rx] Atorvastatin [Lipitor] 20 mg PO HS #30 tab 09/24/17 [Rx] Follow up Appointment(s)/Referral(s): Kiley Moy MD [STAFF PHYSICIAN] - 2 Weeks Ross De La Garza DO [Primary Care Provider] - 1 Week
--- NOTE | 2017-09-24 12:20 | P.PN ---
Subjective Progress Note Date: 09/24/17 Mr. Butcher is seen and examined today in follow-up for initial consultation for chest pain. He has had no further episodes of chest discomfort. Telemetry tracings have been unremarkable. Vital signs remained stable overnight. Cardiac enzymes are negative 3. He is scheduled to undergo stress echocardiogram this morning. LDL 114, HDL 27. He states he has not been taking his a atorvastatin for the previous 4-5 months and is agreeable to resume. Objective - Vital Signs Vital signs: Vital Signs Temp 97.1 F L 09/24/17 11:42 Pulse 72 09/24/17 11:42 Resp 16 09/24/17 11:42 BP 123/55 09/24/17 11:42 Pulse Ox 96 09/24/17 11:42 Intake & Output 09/23/17 09/24/17 09/24/17 18:59 06:59 18:59 Weight 87.09 kg Other: Voiding Method Toilet Toilet Toilet # Voids 1 1 - Exam Blood pressure 115/55 heart rate 55 afebrile GENERAL: Well-appearing, well-nourished and in no acute distress. NECK: Supple without JVD or thyromegaly. LUNGS: Breath sounds clear to auscultation bilaterally. Respiration equal and unlabored. No wheezes, rales or rhonchi. HEART: Regular rate and rhythm without murmurs, rubs or gallops. S1 and S2 heard. EXTREMITIES: Normal range of motion, no edema. No clubbing or cyanosis. Peripheral pulses intact and strong. - Labs CBC & Chem 7: 09/24/17 06:19 09/24/17 06:19 Labs: Abnormal Lab Results - Last 24 Hours (Table) 09/24/17 Range/Units 06:19 Glucose 134 H (74-99) mg/dL Total Protein 6.2 L (6.3-8.2) g/dL Triglycerides 271 H (<150) mg/dL LDL Cholesterol, Calc 114 H (0-99) mg/dL HDL Cholesterol 27 L (40-60) mg/dL Assessment and Plan Assessment: ASSESSMENT 1. Unstable angina 2. History of known mild triple vessel disease from 2013 cath 3. Dyslipidema PLAN Proceed with stress echocardiogram as was previously ordered. We will review 2-D echocardiogram once obtained. If above diagnostic testing is negative he is stable from a cardiac perspective. Follow-up with Dr. Moy in 2-3 weeks. Resume atorvastatin and aspirin daily. Plan has been discussed with the patient. Nurse Practitioner note has been reviewed, I agree with a documented findings and plan of care. Patient was seen and examined.
== END 2017-09-24 13:50 | disposition home or self-care (01) ==
LOC: EC 04:51 → 3SUR 06:20 → 3OBS 18:55
PROVIDERS: ADMIT Internal Medicine; ATTEND Internal Medicine
DX: R07.89 Other chest pain (principal); I25.10 Atherosclerotic heart disease of native coronary artery without angina pectoris; R11.0 Nausea; R06.02 Shortness of breath; M51.36 Other intervertebral disc degeneration, lumbar region; G62.9 Polyneuropathy, unspecified; I25.2 Old myocardial infarction; E78.5 Hyperlipidemia, unspecified; M19.90 Unspecified osteoarthritis, unspecified site; Z86.19 Personal history of other infectious and parasitic diseases; Z87.891 Personal history of nicotine dependence; Z79.891 Long term (current) use of opiate analgesic; Z79.899 Other long term (current) drug therapy; Z88.0 Allergy status to penicillin; Z82.49 Family history of ischemic heart disease and other diseases of the circulatory system; Z82.5 Family history of asthma and other chronic lower respiratory diseases
CPT/HCPCS: 99291 ×2; 96374 ×2; 36415; 93005; 93017; 93306; 93350; 80061; 80053 ×2; 82550; 82553; 83735; 84484; 85025 ×2; 85610; 85730; 71046; G0378 ×2; J1644 ×2

== ENCOUNTER → 2018-05-21 | Outpatient (CLI) | payer BC ==
--- NOTE | 2018-05-21 13:20 | MR ---
EXAMINATION TYPE: MR lumbar spine wo con DATE OF EXAM: 05/21/2018 COMPARISON: NONE HISTORY: lumbar radiculopathy and chronic pain per order; low back pain for over 5 years causing pain into bilateral buttocks and thighs. TECHNIQUE: Multiplanar, multisequence imaging of the lumbar spine is performed without IV contrast. FINDINGS: Sagittal images of the lumbar spine show vertebral body heights and alignment to appear sat isfactory. Multilevel disc desiccation is present. There is moderate disc space narrowing most promin ent posteriorly at L5-S1 level with vacuum disc phenomenon. Small posterior disc herniations are seen L4-L5 and L5-S1 levels on sagittal images. The conus medullaris is normal in position and signal end ing at T12-L1 disc space level. There is mild to moderate multilevel anterior spurring. There is hete rogeneous Modic type II degenerative change involving anterior inferior lower thoracic endplates as w ell as anterior L4 endplates. Axial images show the T12-L1, L1-L2, and L2-L3 levels all to appear within normal limits. Axial images at the L3-L4 level show mild broad disc bulge minimally effacing the anterior thecal sac , bilateral neural foramina are patent. Axial images at the L4-L5 level show moderate facet degenerative changes bilaterally. There is mild t o moderate broad disc bulge with broad-based right paracentral disc protrusion component effacing ant erior thecal sac on axial image 7. There is mild to moderate bilateral anterior inferior neural fora dom narrowing. Some encroachment along inferior aspect of both L4 nerves is felt present on sagitta l images 1 and 11 respectively. Axial images at the L5-S1 level shows mild to moderate left greater than right facet degenerative earl nges. There is broad disc bulge with right paracentral disc protrusion component effacing anterior th ecal sac on axial image 2. There is moderate left-sided neural foraminal narrowing on sagittal image 2. Right-sided neural foramen is patent. Paraspinal muscle bulk is preserved. No suspicious retroperitoneal findings are noted. Retroaortic le ft renal vein is suspected on axial image 20. IMPRESSION: Multilevel degenerative changes in the lower lumbar spine as detailed above.
== END ==
LOC: RADMRIMAIN 11:23
PROVIDERS: ATTEND Family Medicine
DX: M47.26 Other spondylosis with radiculopathy, lumbar region (principal); M47.818 Spondylosis without myelopathy or radiculopathy, sacral and sacrococcygeal region
CPT/HCPCS: 72148

== ENCOUNTER 2018-12-20 07:20 | Day surgery (SDC) | payer BC ==
[2018-12-19 08:18] VITALS: BMI 30.5
[2018-12-20 08:00] VITALS: RESP 18; TEMP 97.2
[2018-12-20] MEDS ORDERED: LACTATED RINGERS 1,000 ML IV ONE (08:00)
[2018-12-20] MEDS ORDERED: LIDOCAINE 1% 20 ML VIAL (10MG/ML) FOR IV START INTRADERMA ONE (08:01)
[2018-12-20 08:03] LABS: Glucose,Whole Blood 128 mg/dL (75-99)
[2018-12-20] MEDS ORDERED: PROPOFOL 10 MG/ML 20 ML VIAL IV ONE (08:28)
--- NOTE | 2018-12-20 08:49 | P.PCN ---
Date of Procedure: 12/20/18 Procedure(s) Performed: BRIEF HISTORY: Patient is a 58-year-old pleasant white male, scheduled for an elective colonoscopy as a part of screening for colorectal neoplasia. PROCEDURE PERFORMED: Colonoscopy with snare polypectomy. PREOPERATIVE DIAGNOSIS: Screening for colon cancer. IV sedation per Anesthesia. PROCEDURE: After informed consent was obtained, the patient, was brought into the endoscopy unit. IV sedation was administered by Anesthesia under continuous monitoring. Digital rectal examination was normal. Initially the Olympus CF-160 flexible video colonoscope was then inserted in the rectum, gradually advanced into the cecum without any difficulty. Careful examination was performed as the scope was gradually being withdrawn. Ileocecal valve and the appendiceal orifice were visualized and appeared normal. Prep was excellent. Mucosa of the cecum appeared normal. In the ascending colon there was a 7 mm and once edematous broad-based polyp removed by snare polypectomy. In the transverse colon there were 4 polyps all measuring between 2-3 mm in size removed by snare polypectomy. In the descending colon there was a 5 mm and 1 m broad-based polyps removed by snare polypectomy. In the rectum there were 2 polyps measuring 5 mm in size both were removed by snare polypectomy. The rest of the, ascending colon, transverse colon, descending colon, sigmoid colon, and rectum appeared normal. Retroflexion was performed in the rectum and no lesions were seen. The patient tolerated the procedure well. IMPRESSION: 7 mm and 1 cm broad-based ascending colon polyps status post polypectomy 2-3 mm 4 sessile polyps in the transverse colon status post snare polypectomy 5 mm 2 rectal polyps status post polypectomy 1 cm and 5 mm descending colon polyp status post polypectomy RECOMMENDATIONS: Findings of this examination were discussed with the patient as well as his family. He was advised to follow with the biopsy is also. If the biopsy shows an adenoma, he can have a repeat colonoscopy in 3 years.
[2018-12-20 09:45] VITALS: BP 162/92; PULSE 68
== END 2018-12-20 09:44 | disposition home or self-care (01) ==
LOC: ORWHC2ENDO 07:20
PROVIDERS: ATTEND Internal Medicine Gastroenterology
DX: Z12.11 Encounter for screening for malignant neoplasm of colon (principal); K63.5 Polyp of colon; D12.3 Benign neoplasm of transverse colon; D12.4 Benign neoplasm of descending colon; K62.1 Rectal polyp; I25.2 Old myocardial infarction; I25.10 Atherosclerotic heart disease of native coronary artery without angina pectoris; E78.5 Hyperlipidemia, unspecified; E11.9 Type 2 diabetes mellitus without complications; Z79.84 Long term (current) use of oral hypoglycemic drugs; Z79.899 Other long term (current) drug therapy; Z88.0 Allergy status to penicillin; Z79.1 Long term (current) use of non-steroidal anti-inflammatories (NSAID)
CPT/HCPCS: 88305; 45385; J2704

== ENCOUNTER → 2019-01-07 | Outpatient (CLI) | payer BC ==
--- NOTE | 2019-01-07 14:28 | XR ---
EXAMINATION TYPE: XR chest 2V DATE OF EXAM: 01/07/2019 COMPARISON: Chest x-ray September 23, 2017. HISTORY: Cough with fluid in lungs for 2 weeks per patient. TECHNIQUE: Frontal and lateral views of the chest are obtained. FINDINGS: There is some chronic parenchymal change without suspicious focal air space opacity, pleur al effusion, or pneumothorax seen. The cardiac silhouette size is within normal limits. Surgical earl nges right humeral head with metallic anchors are redemonstrated. IMPRESSION: Chronic medical changes without acute pulmonary process.
== END | disposition home or self-care (01) ==
LOC: RADXRMAIN 14:02
PROVIDERS: ATTEND Family Medicine
DX: R91.8 Other nonspecific abnormal finding of lung field (principal); R05 Cough; R06.02 Shortness of breath
CPT/HCPCS: 71046

== ENCOUNTER → 2019-03-24 | Outpatient (CLI) | payer BC ==
[2019-03-24 16:21] LABS: African American GFR (CKD) >90 (>60 ml/min/1.73 sqM); Blood Urea Nitrogen 24 mg/dL (9-20); Non-African American GFR(CKD) >90 (>60 ml/min/1.73 sqM)
--- NOTE | 2019-03-25 07:51 | CT ---
EXAMINATION TYPE: CT brain. Con DATE OF EXAM: 03/24/2019 COMPARISON: NONE HISTORY: Tongue and lip numbness CT DLP: 2180.8 mGycm Automated Exposure Control for Dose Reduction was Utilized. TECHNIQUE: CT scan of the head is performed with IV contrast.,CT scan of the head is performed withou t and with without and with IV Contrast, patient injected with 100 mL of Isovue 300. FINDINGS: Noncontrast images show no acute intracranial hemorrhage or midline shift. The ventricles and sulci are symmetrically prominent compatible with mild degree age-related volume loss. There are few punctate scattered foci of hypoattenuation in the deep white matter of the tavares radiata, most commonly on the basis of microangiopathy. Postcontrast images show no suspicious enhancing intraparen chymal mass. The globes are intact and the visualized sinuses are clear. There is leftward nasal sept al deviation present. IMPRESSION: No abnormal intracranial enhancement. These foci of nonspecific white matter change, most commonly on the basis of chronic microangiopathy. MRI could be considered to evaluate for neuritis.
--- NOTE | 2019-03-25 08:05 | US ---
EXAMINATION TYPE: US carotid duplex BILAT DATE OF EXAM: 03/24/2019 COMPARISON: NONE CLINICAL HISTORY: R55 Syncope. Facial numbness EXAM MEASUREMENTS: RIGHT: Peak Systolic Velocity (PSV) cm/sec ----- Right CCA: 75.8 ----- Right ICA: 106.5 ----- Right ECA: 156.7 ICA/CCA ratio: 1.4 RIGHT: End Diastole cm/sec ----- Right CCA: 20.5 ----- Right ICA: 47.0 ----- Right ECA: 11.9 LEFT: Peak Systolic Velocity (PSV) cm/sec ----- Left CCA: 85.0 ----- Left ICA: 196.4 ----- Left ECA: 292.6 ICA/CCA ratio: 2.3 LEFT: End Diastole cm/sec ----- Left CCA: 26.4 ----- Left ICA: 60.5 ----- Left ECA: 43.3 VERTEBRALS (direction of flow): Right Vertebral: Antegrade Left Vertebral: Antegrade Rhythm: Normal Bilateral intimal thickening, elevated velocities: right proximal ECA, left proximal ICA and left pro ximal ECA, left ICA/CCA 2.3 IMPRESSION: 1. Stenosis of the left internal carotid artery of 50-69% approaching criteria for greater than 70% s tenosis. CTA neck is recommended for more accurate assessment of degree of stenosis. 2. Incidentally noted elevated velocity of the right external carotid artery secondary to atheromatou s plaquing near its origin. Stenosis of the left external carotid artery is also incidentally seen. Criteria for Assigning % of Stenosis / Diameter reduction (Estimation based on the indirect measurements of the internal carotid artery velocities (ICA PSV). 1. Normal (no stenosis)=ICA PSV < 125 cm/s: ratio < 2.0: ICA EDV<40 cm/s. 2. Less than 50% stenosis=ICA PSV < 125 cm/s: ratio < 2.0: ICA EDV<40 cm/s. 3. 50 to 69% stenosis=ICA PSV of 125 to 230 cm/s: ration 2.0 ? 4.0: ICA EDV 40-100 cm/s. 4. Greater than 70% stenosis to near occlusion= ICA PSV > 230 cm/s: ratio > 4.0: ICA EDV > 100 cm/s. 5. Near occlusion= ICA PSV velocities may be low or undetectable: variable ratio and ICA EDV. 6. Total occlusion=unable to detect flow.
== END | disposition home or self-care (01) ==
LOC: RADUSWWP 15:38
PROVIDERS: ATTEND Family Medicine
DX: I65.23 Occlusion and stenosis of bilateral carotid arteries (principal); R90.89 Other abnormal findings on diagnostic imaging of central nervous system; I73.9 Peripheral vascular disease, unspecified; R55 Syncope and collapse
CPT/HCPCS: 82565; 84520; 93880; 70470; 36415; Q9967

== ENCOUNTER 2019-04-20 19:26 | Inpatient (IN) | payer BC ==
[2019-04-20] MEDS ORDERED: ASPIRIN 81 MG PO STA (19:42)
[2019-04-20] MEDS ORDERED: amLODIPine 10 MG TAB PO STA (19:48)
[2019-04-20 20:01] LABS: Basophils # (A) 0.1 k/uL (0-0.2); Basophils % (A) 1 %; Eosinophils # (A) 0.2 k/uL (0-0.7); Eosinophils % (A) 3 %; HCT 44.1 % (39.0-53.0); HGB 15.3 gm/dL (13.0-17.5); Lymphocytes # (A) 2.5 k/uL (1.0-4.8); Lymphocytes % (A) 29 %; MCH 29.9 pg (25.0-35.0); MCHC 34.7 g/dL (31.0-37.0); MCV 86.2 fL (80.0-100.0); Mean Platelet Volume 7.4; Monocytes # (A) 0.4 k/uL (0-1.0); Monocytes % (A) 5 %; Neutrophils # (A) 5.4 k/uL (1.3-7.7); Neutrophils % (A) 61 %; Platelet Count 228 k/uL (150-450); RBC 5.11 m/uL (4.30-5.90); RDW 14.3 % (11.5-15.5); WBC 8.8 k/uL (3.8-10.6)
--- NOTE | 2019-04-20 20:05 | ED ---
Chest Pain HPI - General Chief Complaint: Chest Pain Stated Complaint: Chest tightness Time Seen by Provider: 04/20/19 19:42 Source: patient Mode of arrival: wheelchair Limitations: no limitations - History of Present Illness Initial Comments: Patient presents with tightness in the chest. He has a history of cardiac disease. His blood pressure is elevated. He has no back pain. He has no nausea or vomiting or diaphoresis. He has no weakness in the extremities. He took no medicine for the symptoms. Nothing makes it better or worse. The chest pain has gotten worse all day. He has no pain or swelling in the arms or legs. He denies sick contacts or travel. - Related Data Home Medications Medication Instructions Recorded Confirmed Gabapentin [Neurontin] 800 mg PO TID 01/26/16 04/20/19 Ibuprofen [Motrin] 800 mg PO TID 12/19/18 04/20/19 metFORMIN HCL 1,000 mg PO PC-SUPPER 12/19/18 04/20/19 Aspirin [Adult Low Dose Aspirin EC] 81 mg PO DAILY 04/16/19 04/20/19 Atorvastatin [Lipitor] 40 mg PO DAILY 04/16/19 04/20/19 Allergies Allergy/AdvReac Type Severity Reaction Status Date / Time Penicillins Allergy Unknown Verified 04/20/19 20:39 Childhood Review of Systems ROS Statement: Those systems with pertinent positive or pertinent negative responses have been documented in the HPI. ROS Other: All systems not noted in ROS Statement are negative. EKG Findings - EKG Comments: EKG Findings:: Twelve-lead EKG shows ventricular rate 72 bpm, normal MI interval and QRS complexes, no ST elevation or depression, interpreted by me as normal sinus rhythm. Past Medical History Past Medical History: Asthma, Chest Pain / Angina, Diabetes Mellitus, Hyperlipidemia, Osteoarthritis (OA) Additional Past Medical History / Comment(s): hx scarlet fever, degenerative disc, frequent headaches recently, asthma and heart murmer as child, numbness in face, Last Myocardial Infarction Date:: 2011 History of Any Multi-Drug Resistant Organisms: None Reported Past Surgical History: Heart Catheterization, Orthopedic Surgery Additional Past Surgical History / Comment(s): vasectomy, bilateral rotator cuff repair, Past Anesthesia/Blood Transfusion Reactions: No Reported Reaction Past Psychological History: No Psychological Hx Reported Smoking Status: Former smoker - Past Family History Father Additional Family Medical History / Comment(s): blood clot-not sure where Mother Additional Family Medical History / Comment(s): Mother at age 56 from asthma attack and possibly having a myocardial infarction at the same time. Brother(s) Family Medical History: Cancer Additional Family Medical History / Comment(s): . General Exam Limitations: no limitations General appearance: alert, in no apparent distress Head exam: Present: atraumatic, normocephalic, normal inspection Eye exam: Present: normal appearance, PERRL, EOMI. Absent: scleral icterus, conjunctival injection, periorbital swelling ENT exam: Present: normal exam, mucous membranes moist Neck exam: Present: normal inspection. Absent: tenderness, meningismus, lymphadenopathy Respiratory exam: Present: normal lung sounds bilaterally. Absent: respiratory distress, wheezes, rales, rhonchi, stridor Cardiovascular Exam: Present: regular rate, normal rhythm, normal heart sounds. Absent: systolic murmur, diastolic murmur, rubs, gallop, clicks GI/Abdominal exam: Present: soft, normal bowel sounds. Absent: distended, tenderness, guarding, rebound, rigid Extremities exam: Present: normal inspection, full ROM, normal capillary refill. Absent: tenderness, pedal edema, joint swelling, calf tenderness Back exam: Present: normal inspection Neurological exam: Present: alert, oriented X3, CN II-XII intact Psychiatric exam: Present: normal affect, normal mood Skin exam: Present: warm, dry, intact, normal color. Absent: rash Course Vital Signs 04/20/19 19:34 Temperature 98.1 F Pulse Rate 72 Respiratory 20 Rate Blood Pressure 233/113 O2 Sat by Pulse 96 Oximetry Chest Pain [facility] Patient still has chest pressure. He is not feeling better. He will be admitted to the hospital. Disposition Clinical Impression: Chest pain Disposition: ADMITTED IP TO THIS HOSP Condition: Fair Referrals: Ross De La Garza DO [Primary Care Provider] - 1-2 days
[2019-04-20 20:10] LABS: INR 0.9 (<1.2); Partial Thromboplastin Time 24.1 sec (22.0-30.0); Prothrombin Time 9.7 sec (9.0-12.0)
[2019-04-20 20:11] LABS: ALT 26 U/L (21-72); AST 22 U/L (17-59); African American GFR (CKD) >90 (>60 ml/min/1.73 sqM); Albumin 4.5 g/dL (3.5-5.0); Alkaline Phosphatase 87 U/L (38-126); Anion Gap 11 mmol/L; Blood Urea Nitrogen 21 mg/dL (9-20); Calcium 9.6 mg/dL (8.4-10.2); Carbon Dioxide 27 mmol/L (22-30); Chloride 102 mmol/L (98-107); Glucose 156 mg/dL (74-99); Sodium 140 mmol/L (137-145); Total Bilirubin 0.5 mg/dL (0.2-1.3); Total Protein 7.2 g/dL (6.3-8.2)
--- NOTE | 2019-04-20 20:25 | XR ---
EXAMINATION TYPE: XR chest 2V DATE OF EXAM: 04/20/2019 COMPARISON: 01/07/2019 HISTORY: Chest pain TECHNIQUE: Frontal and lateral views of the chest are obtained. FINDINGS: Heart and mediastinum are normal. Lungs are clear. Diaphragm is normal. There are chest le ads. Bony thorax is intact. IMPRESSION: Normal chest. No change.
[2019-04-20] MEDS ORDERED: NALOXONE 0.4 MG/ML 1 ML VIAL IV PRN (20:48)
[2019-04-20] MEDS ORDERED: CALCIUM CARBONATE 500 MG CHEWABLE PO PRN (20:48)
[2019-04-20] MEDS ORDERED: DOCUSATE 100 MG CAP PO PRN (20:48)
[2019-04-20] MEDS ORDERED: ONDANSETRON 4 MG/2 ML VIAL IVP PRN (20:48)
[2019-04-20] MEDS: GABAPENTIN 400 MG CAP PO SCH (23:35)
[2019-04-20] MEDS: TEMAZEPAM 15 MG CAP PO PRN (23:35)
[2019-04-21 06:57] LABS: Glucose,Whole Blood 145 mg/dL (75-99)
[2019-04-21] MEDS: ATORVASTATIN 40 MG TAB PO SCH (08:40)
[2019-04-21] MEDS: LOSARTAN 50 MG TAB PO SCH (08:40)
[2019-04-21] MEDS: GABAPENTIN 400 MG CAP PO SCH ×3 (08:40→20:32)
[2019-04-21] MEDS: HYDROcodone/APAP 5-325MG 1 EACH TAB PO PRN ×2 (08:42→20:32)
[2019-04-21] MEDS ORDERED: ASPIRIN 81 MG PO SCH (09:00)
[2019-04-21] MEDS ORDERED: NITROGLYCERIN SL TABS 0.4 MG TAB SUBLINGUAL PRN (10:14)
[2019-04-21] MEDS ORDERED: SODIUM CHLORIDE 0.9% 1,000 ML in EMPTY BAG 1 BAG IV ONE (10:14)
--- NOTE | 2019-04-21 10:30 | P.CRDCN ---
History of Present Illness History of present illness: This is a pleasant 58-year-old male past medical history significant for dyslipidemia, diabetes mellitus and nonobstructive coronary artery disease. He follows in the office with Dr. jelly madison. He recently quit smoking tobacco in 2017. We have asked him in consultation secondary to chest discomfort. He is scheduled for an elective outpatient heart catheterization tomorrow secondary to chest pressure with exertion. He was having intermittent episodes of chest pressure over the weekend. The pain is descirbed as a pressure across his chest from side to side. There is no radiation to the arm, back, neck or jaw. He gets mildly short of breath with the pain. Typically lasts about 5 minutes and slowly begins to subside on its own. He has not taken SL nitro. He checked his blood pressure at home prior to coming in and it was quite elevated over 200 systolic. Upon arrival here his pain had subsided however his blood pressure was 233/113. He was given a dose of norvasc in the ED. Blood pressure this morning 156/87 heart rate 67 afebrile and maintaining oxygen saturation on room air. He is seen and examined sitting up in bed in no acute distress. He denies active chest dis comfort. Most recent cardiac catheterization performed 2012 revealed mid LAD 20-40% nonobstructive disease, 30-40% plaque of the diagonal branch, 30-40% proximal ramus disease and 30% distal RCA. EKG reveals sinus mechanism with no acute ST or T-wave changes noted. Chest xray is negative for an acute cardiopulmonary process. Laboratory data reviewed, CBC unremarkable, sodium 140, potassium 4.0, creatinine 0.83, magnesium 2.0, cardiac enzymes negative 3, proBNP 55. Current cardiac medications include aspirin 81 mg daily and atorvastatin 40 mg daily. Most recent echocardiogram obtained 09/2017 reveals preserved LV systolic function with EF 55-60%, mean gradient across aortic valve 5 mmHg, mild MR. At the time of my exam: CONSTITUTIONAL: Denies fever. Denies chills. EYES: Denies blurred vision. Denies vision changes. Denies eye pain. EARS, NOSE, MOUTH & THROAT: Denies headache. Denies sore throat. Denies ear pain. CARDIOVASCULAR: Denies chest pain. Denies shortness of breath. Denies orthopnea. Denies PND. Denies palpitations. RESPIRATORY: Denies cough. GASTROINTESTINAL: Denies abdominal pain. Denies diarrhea. Denies constipation. Denies nausea. Denies vomiting. MUSCULOSKELETAL: Denies myalgias. INTEGUMENTARY: Denies pruitis. Denies rash. NEUROLOGIC: Denies numbness. Denies tingling. Denies weakness. PSYCHIATRIC: Denies anxiety. Denies depression. ENDOCRINE: Denies fatigue. Denies weight change. Denies polydipsia. Denies polyurina. GENITOURINARY: Denies burning, hematuria or urgency with micturation. HEMATOLOGIC: Denies history of anemia. Denies bleeding. Blood pressure 156/80 7.67 afebrile maintaining oxygen saturation on room air GENERAL: This is a 58-year-old male in no apparent distress at the time of my examination. HEENT: Head is atraumatic, normocephalic. Pupils are equal, round. Sclerae anicteric. Conjunctivae are clear. Mucous membranes of the mouth are moist. Neck is supple. There is no jugular venous distention. No carotid bruit is heard. LUNGS: Clear to auscultation no wheezes, rales or rhonchi. No chest wall tenderness is noted on palpation or with deep breathing. HEART: Regular rate and rhythm with systolic ejection murmur at the left sternal border, no rubs or gallops. S1 and S2 heard. ABDOMEN: Soft, nontender. Bowel sounds are heard. No organomegaly noted. EXTREMITIES: No evidence of peripheral edema and no calf tenderness noted. VASCULAR: Radial and dorsalis pedis pulses palpated, no evidence of clubbing. NEUROLOGIC: Patient is awake, alert and oriented x3. ASSESSMENT Unstable angina, an acute coronary event has been ruled out. Currently chest pain-free. Hypertension, uncontrolled new-onset Dyslipidemia Diabetes mellitus PLAN Initiate on losartan 50 mg daily. We will continue to monitor his blood pressure closely and consider adding amlodipine. Obtain 2-D echocardiogram and Doppler study to assess cardiac structure and function. The patient will proceed with cardiac catheterization tomorrow as previously sc heduled with Dr. Moy. We will continue to follow and make recommendations accordingly. Thank you kindly for this consultation. Nurse Practitioner note has been reviewed, I agree with a documented findings and plan of care. Patient was seen and examined. Past Medical History Past Medical History: Asthma, Chest Pain / Angina, Diabetes Mellitus, Hyperlipi demia, Hypertension, Osteoarthritis (OA) Additional Past Medical History / Comment(s): hx scarlet fever, degenerative disc, frequent headaches recently, asthma and heart murmer as child, numbness in face, Last Myocardial Infarction Date:: 2011 History of Any Multi-Drug Resistant Organisms: None Reported Past Surgical History: Heart Catheterization, Orthopedic Surgery Additional Past Surgical History / Comment(s): vasectomy, bilateral rotator cuff repair, Past Anesthesia/Blood Transfusion Reactions: No Reported Reaction Past Psychological History: No Psychological Hx Reported Smoking Status: Former smoker Past Alcohol Use History: Rare Past Drug Use History: None Reported - Past Family History Father Additional Family Medical History / Comment(s): blood clot-not sure where Mother Additional Family Medical History / Comment(s): Mother at age 56 from asthma attack and possibly having a myocardial infarction at the same time. Brother(s) Family Medical History: Cancer Additional Family Medical History / Comment(s): . Medications and Allergies Home Medications Medication Instructions Recorded Confirmed Type Gabapentin [Neurontin] 800 mg PO TID 01/26/16 04/20/19 History Ibuprofen [Motrin] 800 mg PO TID 12/19/18 04/20/19 History metFORMIN HCL 1,000 mg PO PC-SUPPER 12/19/18 04/20/19 History Aspirin [Adult Low Dose Aspirin EC] 81 mg PO DAILY 04/16/19 04/20/19 History Atorvastatin [Lipitor] 40 mg PO DAILY 04/16/19 04/20/19 History Allergies Allergy/AdvReac Type Severity Reaction Status Date / Time Penicillins Allergy Unknown Verified 04/20/19 23:03 Childhood Physical Exam Vitals: Vital Signs Temp Pulse Pulse Resp BP BP Pulse Ox 04/21/19 07:28 98.4 F 67 17 156/87 92 L 04/21/19 04:00 98 F 61 18 146/81 96 04/20/19 23:56 160/71 04/20/19 22:31 98.2 F 63 18 181/83 91 L 04/20/19 21:16 63 16 171/88 96 04/20/19 19:34 98.1 F 72 20 233/113 96 Intake and Output 04/20/19 04/21/19 04/21/19 22:59 06:59 14:59 Intake Total 10 Balance 10 Intake: Amount of Fluid Infused ( 10 ml) Other: Voiding Method Toilet # Voids 1 Weight 87.543 kg Results 04/20/19 19:45 04/20/19 19:45 Cardiac Enzymes 04/20/19 04/20/19 04/21/19 Range/Units 19:45 19:45 02:32 AST 22 (17-59) U/L Troponin I <0.012 <0.012 (0.000-0.034) ng/mL Coagulation 04/20/19 Range/Units 19:45 PT 9.7 (9.0-12.0) sec APTT 24.1 (22.0-30.0) sec CBC 04/20/19 Range/Units 19:45 WBC 8.8 (3.8-10.6) k/uL RBC 5.11 (4.30-5.90) m/uL Hgb 15.3 (13.0-17.5) gm/dL Hct 44.1 (39.0-53.0) % Plt Count 228 (150-450) k/uL Comprehensive Metabolic Panel 04/20/19 Range/Units 19:45 Sodium 140 (137-145) mmol/L Potassium 4.0 (3.5-5.1) mmol/L Chloride 102 (98-107) mmol/L Carbon Dioxide 27 (22-30) mmol/L BUN 21 H (9-20) mg/dL Creatinine 0.83 (0.66-1.25) mg/dL Glucose 156 H (74-99) mg/dL Calcium 9.6 (8.4-10.2) mg/dL AST 22 (17-59) U/L ALT 26 (21-72) U/L Alkaline Phosphatase 87 (38-126) U/L Total Protein 7.2 (6.3-8.2) g/dL Albumin 4.5 (3.5-5.0) g/dL Current Medications Generic Name Dose Route Start Last Admin Trade Name Freq PRN Reason Stop Dose Admin Hydrocodone Bitart/Acetaminophen 1 each 04/20/19 20:48 [place] 5-325 PO Q4HR PRN Moderate Pain Aspirin 81 mg 04/21/19 09:00 Aspirin PO DAILY [facility] Atorvastatin Calcium 40 mg 04/21/19 09:00 Lipitor PO DAILY ARTHUR Calcium Carbonate/Glycine 1,000 mg 04/20/19 20:48 Tums PO Q4HR PRN Dyspepsia Docusate Sodium 100 mg 04/20/19 20:48 Colace PO BID PRN Constipation Gabapentin 800 mg 04/20/19 22:00 04/20/19 23:35 Neurontin PO 800 mg TID ARTHUR Administration Metformin HCl 1,000 mg 04/21/19 18:30 Glucophage PO PC-SUPPER RATHUR Naloxone HCl 0.2 mg 04/20/19 20:48 Narcan IV Q2M PRN Opioid Reversal Ondansetron HCl 4 mg 04/20/19 20:48 Zofran IVP Q8HR PRN Nausea And Vomiting Temazepam 15 mg 04/20/19 20:48 04/20/19 23:35 Restoril PO 15 mg HS PRN Administration Insomnia Intake and Output 04/20/19 04/21/19 04/21/19 22:59 06:59 14:59 Intake Total 10 Balance 10 Intake: Amount of Fluid Infused ( 10 ml) Other: Voiding Method Toilet # Voids 1 Weight 87.543 kg 04/20/19 19:45 04/20/19 19:45
[2019-04-21 11:50] LABS: Glucose,Whole Blood 157 mg/dL (75-99)
--- NOTE | 2019-04-21 14:06 | P.HPIM ---
History of Present Illness H&P Date: 04/21/19 Chief Complaint: Chest pressure, fatigue This is a 56-year-old male one of Dr. De La Garza and Dr. Moy. He has a past medical history for myocardial infarction in 2012 underwent heart catheterization that found left main without significant coronary artery diseas e, left anterior descending diagonal branch 30-40% plaque, LAD was mildly diffuse disease 20-40%, left circumflex no high-grade stenosis and no intervention done, scarlet fever, chronic back pain, was hospitalized back in 2016 for episode of chest pain while golfing, hyperlipidemia, diabetes mellitu s2, remote history of tobacco use and dependence and quit in 2017. The patient states that starting a few days ago when he was seen at Dr. Tesfaye's office for carotid artery stenosis evaluation he was found to have a blood pressure 175/92. He then went to see Dr. Moy and admits that he has not seen him in some time. His blood pressure at that time was 131/78 and he was scheduled for heart catheterization on Sunday of this week. The patient states he went home and he was having chest pressure and tightness there is having trouble walking with fatigue, headache. His chest was pounding. He did check his blood pressure when he got home from work and the systolic was 187. He took a nap and checked it again and it was 194. After dinner it was 207 and then came into [facility] emergency center for evaluation. EKG reveals sinus rhythm with no acute ST or T-wave changes noted. Chest x-ray negative for acute cardiopulmonary process. CBC unremarkable, creatinine 0.43, potassium 4.0, magnesium 2.0. Troponins negative on 3 draws. ProBNP 55. He was found to have a blood pressure of 233/113. He was given a dose of norvasc in the emergency center, placed in the observation unit, cardiology consult was requested and patient started on losartan 50 mg daily. Patient is scheduled for heart catheterization tomorrow. Review of Systems Constitutional: Reports fatigue, Denies anorexia, Denies chills, Denies fever, Denies poor appetite Ears, nose, mouth and throat: Reports headache, Denies dysphagia, Denies nasal congestion, Denies nasal discharge, Denies vertigo Cardiovascular: Reports chest pain, Reports decreased exercise tolerance, Reports dyspnea on exertion, Denies edema, Denies leg edema, Denies lightheadedness, Denies orthopnea, Denies palpitations, Denies shortness of breath, Denies syncope Respiratory: Denies cough, Denies cough with sputum, Denies dyspnea, Denies excessive sputum, Denies hemoptysis, Denies wheezing Gastrointestinal: Denies abdominal pain, Denies diarrhea, Denies loss of appetite, Denies nausea, Denies vomiting Genitourinary: Denies dysuria, Denies urinary retention Musculoskeletal: Denies frequent falls, Denies gait dysfunction, Denies muscle weakness, Denies myalgias Integumentary: Denies pruritus, Denies rash, Denies wounds Neurological: Denies aphasia, Denies change in mentation, Denies change in speech, Denies numbness, Denies seizures, Denies weakness Psychiatric: Denies anxiety, Denies depression Endocrine: Denies fatigue, Denies weight change Past Medical History Past Medical History: Asthma, Chest Pain / Angina, Diabetes Mellitus, Hyperlipidemia, Hypertension, Osteoarthritis (OA) Additional Past Medical History / Comment(s): hx scarlet fever, degenerative disc, frequent headaches recently, asthma and heart murmer as child, numbness in face, Last Myocardial Infarction Date:: 2011 History of Any Multi-Drug Resistant Organisms: None Reported Past Surgical History: Heart Catheterization, Orthopedic Surgery Additional Past Surgical History / Comment(s): vasectomy, bilateral rotator cuff repair, Past Anesthesia/Blood Transfusion Reactions: No Reported Reaction Past Psychological History: No Psychological Hx Reported Smoking Status: Former smoker Past Alcohol Use History: Rare Additional Past Alcohol Use History / Comment(s): Patient has been a smoker one pack per day since he was 14 years of age. Patient quit smoking in 2017. He denies any marijuana or street drug use. He uses alcohol on a rare basis. He drives a [employer]. Past Drug Use History: None Reported - Past Family History Father Additional Family Medical History / Comment(s): Father at age 93 after myocardial infarction with history of previous myocardial infarctions. Mother Additional Family Medical History / Comment(s): Mother at age 56 from asthma attack and possibly having a myocardial infarction at the same time. Brother(s) Family Medical History: Cancer Additional Family Medical History / Comment(s): The patient has one brother that has from throat cancer. Second brother has no major medical problems and he is aware of. Patient does not have any sisters. He has one son and one daughter with no major medical problems. Medications and Allergies Home Medications Medication Instructions Recorded Confirmed Type Gabapentin [Neurontin] 800 mg PO TID 01/26/16 04/20/19 History Ibuprofen [Motrin] 800 mg PO TID 12/19/18 04/20/19 History metFORMIN HCL 1,000 mg PO PC-SUPPER 12/19/18 04/20/19 History Aspirin [Adult Low Dose Aspirin EC] 81 mg PO DAILY 04/16/19 04/20/19 History Atorvastatin [Lipitor] 40 mg PO DAILY 04/16/19 04/20/19 History Allergies Allergy/AdvReac Type Severity Reaction Status Date / Time Penicillins Allergy Unknown Verified 04/20/19 23:03 Childhood Physical Exam Vitals: Vital Signs Temp Pulse Pulse Resp BP BP Pulse Ox 04/21/19 12:00 97.6 F 67 17 162/82 92 L 04/21/19 08:00 67 17 04/21/19 07:28 98.4 F 67 17 156/87 92 L 04/21/19 04:00 98 F 61 18 146/81 96 04/20/19 23:56 160/71 04/20/19 22:31 98.2 F 63 18 181/83 91 L 04/20/19 21:16 63 16 171/88 96 04/20/19 19:34 98.1 F 72 20 233/113 96 Intake and Output 04/20/19 04/21/19 04/21/19 22:59 06:59 14:59 Intake Total 10 Balance 10 Intake: Amount of Fluid Infused ( 10 ml) Other: Voiding Method Toilet Toilet # Voids 1 Weight 87.543 kg - Constitutional General appearance: average body habitus, no acute distress - EENT Eyes: anicteric sclerae, EOMI, PERRLA, no ptosis, no scleral icterus, normal appearance ENT: hearing grossly normal, NA/AT, normal oropharynx, no thrush Ears: bilateral: normal - Neck Neck: no lymphadenopathy, normal ROM, no rigidity, no stridor, no thyromegaly Carotids: bilateral: upstroke normal Thyroid: bilateral: normal size - Respiratory Respiratory: bilateral: diminished, negative: dullness, rales, rhonchi, wheezing, prolonged expiration - Cardiovascular Rhythm: regular Heart sounds: normal: S1, S2 Abnormal Heart Sounds: no systolic murmur, no S3 Gallop, no S4 Gallop - Gastrointestinal General gastrointestinal: normal bowel sounds, soft, no tenderness, no umbilical hernia, no ventral hernia - Integumentary Integumentary: normal, normal turgor - Neurologic Neurologic: CNII-XII intact - Musculoskeletal Musculoskeletal: strength equal bilaterally - Psychiatric Psychiatric: A&O x's 3, appropriate affect, intact judgment & insight Results CBC & Chem 7: 04/20/19 19:45 04/20/19 19:45 Labs: Abnormal Lab Results - Last 24 Hours (Table) 04/20/19 04/21/19 04/21/19 Range/Units 19:45 06:56 11:48 BUN 21 H (9-20) mg/dL Glucose 156 H (74-99) mg/dL POC Glucose (mg/dL) 145 H 157 H (75-99) mg/dL Thrombosis Risk Factor Assmnt - DVT/VTE Prophylaxis DVT/VTE Prophylaxis: Pharmacologic Prophylaxis ordered - Choose All That Apply Any of the Below Risk Factors Present?: Yes Each Factor Represents 1 point: Age 41-60 years, Obesity (BMI >25) Other Risk Factors: No Other congenital or acquired thrombophilia - If yes, enter type in comment: No Thrombosis Risk Factor Assessment Total Risk Factor Score: 2 Thrombosis Risk Factor Assessment Level: Low Risk Assessment and Plan Plan: 1. Chest pain and fatigue in a patient with prior history of mild CAD. Patient will be kept on heparin drip until his cardiac enzymes are negative, continue aspirin 325 mg orally once every day, continue nitroglycerin paste 1 inch every 6 hours for the next 24 hours, if the cardiac enzymes are negative patient will be scheduled for a stress test tomorrow morning. 2. Hypertensive emergency. Patient's been started on losartan 50 mg daily. 3. Diabetes mellitus type 2. Patient is normally on metformin 1000 mg at supper. Since held for heart catheterization scheduled for tomorrow. 4. Peripheral neuropathy secondary to . Continue degenerative disc disease and diabetes. Continue gabapentin 800 mg 3 times daily. 5. Hyperlipidemia. Continue atorvastatin 40 mg daily. 6. Remote history of tobacco use and dependence. Patient quit in 2017. 7. History of degenerative disc disease of the lumbar spine. 8. History of scarlet fever. Stable. Patient places in observation status. Impression and plan of care have been directed as dictated by the signing physician. Rhianna Avelar nurse practitioner acting as scribe for signing physician.
[2019-04-21 16:50] LABS: Glucose,Whole Blood 115 mg/dL (75-99)
[2019-04-21] MEDS ORDERED: metFORMIN 500 MG TAB PO SCH (18:30)
[2019-04-21 20:27] LABS: Glucose,Whole Blood 141 mg/dL (75-99)
[2019-04-22] MEDS: TEMAZEPAM 15 MG CAP PO PRN ×2 (00:07→21:47)
[2019-04-22] MEDS: GABAPENTIN 400 MG CAP PO SCH ×3 (05:49→17:58)
[2019-04-22] MEDS: LOSARTAN 50 MG TAB PO SCH (05:50)
[2019-04-22] MEDS: ATORVASTATIN 40 MG TAB PO SCH (05:50)
[2019-04-22 07:03] LABS: Glucose,Whole Blood 132 mg/dL (75-99)
[2019-04-22] MEDS ORDERED: VERAPAMIL 2.5 MG/ML 2 ML AMP ONE (07:33)
[2019-04-22] MEDS ORDERED: LIDOCAINE 1% INJ 10MG/ML (20 ML MDV) ONE (07:33)
[2019-04-22] MEDS ORDERED: HEPARIN SODIUM 1,000 UN/ML (10ML VL) ONE (07:34)
[2019-04-22] MEDS ORDERED: fentaNYL (PF) 50 MCG/ML 2 ML AMP ONE (07:34)
[2019-04-22] MEDS ORDERED: IV FLUID CONTINUATION 500 ML IV ONE (07:39)
[2019-04-22] MEDS ORDERED: fentaNYL (PF) 50 MCG/ML 2 ML AMP IV ONE (07:39)
[2019-04-22] MEDS ORDERED: LIDOCAINE 1% INJ 10MG/ML (20 ML MDV) SQ ONE (07:48)
[2019-04-22] MEDS ORDERED: VERAPAMIL SYRINGE (5 MG/10 ML) INTRAARTER ONE (07:49)
[2019-04-22] MEDS: NITROGLYCERIN 1000MCG/10ML SYRINGE INTRACORON ONE ×3 (07:53→08:24)
[2019-04-22] MEDS ORDERED: BIVALIRUDIN 250 MG in SODIUM CHLORIDE 0.9% 50 ML IV ONE (08:00)
[2019-04-22] MEDS ORDERED: BIVALIRUDIN BOLUS 250 MG/50 ML IV ONE ×2 (08:00)
[2019-04-22] MEDS ORDERED: CLOPIDOGREL 75 MG TAB ONE (08:02)
[2019-04-22] MEDS ORDERED: CLOPIDOGREL 75 MG TAB PO ONE (08:06)
[2019-04-22] MEDS ORDERED: IOPAMIDOL-370 125ML BTL INJ ONE (08:09)
[2019-04-22] MEDS ORDERED: IOPAMIDOL-370 100ML BTL INJ ONE ×2 (08:26→08:42)
[2019-04-22] MEDS ORDERED: ASPIRIN 325 MG TAB PO SCH (09:00)
--- NOTE | 2019-04-22 09:01 | ECHOF ---
Referral Reason:cp, sob MEASUREMENTS -------- HEIGHT: 170.2 cm WEIGHT: 87.5 kg BP: 156/87 RVIDd: 2.7 cm (< 3.3) IVSd: 1.4 cm (0.6 - 1.1) LVIDd: 5.2 cm (3.9 - 5.3) LVPWd: 1.6 cm (0.6 - 1.1) IVSs: 1.7 cm LVIDs: 3.3 cm LVPWs: 2.0 cm LA Diam: 4.1 cm (2.7 - 3.8) LAESV Index (A-L): 30.47 ml/m Ao Diam: 3.1 cm (2.0 - 3.7) AV Cusp: 2.0 cm (1.5 - 2.6) MV EXCURSION: 18.048 mm (> 18.000) MV EF SLOPE: 65 mm/s (70 - 150) EPSS: 0.4 cm MV E Ramin: 0.83 m/s MV DecT: 194 ms MV A Ramin: 0.98 m/s MV E/A Ratio: 0.85 RAP: 5.00 mmHg RVSP: 26.79 mmHg FINDINGS -------- Sinus rhythm. This was a technically good study. The left ventricular size is normal. There is moderate concentric left ventricular hypertrophy. O verall left ventricular systolic function is normal with, an EF between 60 - 65 %. The right ventricle is normal in size. LA is midly dilated 29-33ml/m2. The right atrium is normal in size. Aneurysmal Interatrial septum. There is mild aortic valve sclerosis. Mild mitral annular calcification present. There is trace mitral regurgitation. Mild tricuspid regurgitation present. Right ventricular systolic pressure is normal at < 35 mmHg. There is no pulmonic regurgitation present. The aortic root size is normal. Normal inferior vena cava with normal inspiratory collapse consistent with estimated right atrial pre ssure of 5 mmHg. The inferior vena cava is mildly dilated. There is no pericardial effusion. CONCLUSIONS -------- 1. Sinus rhythm. 2. This was a technically good study. 3. The left ventricular size is normal. 4. There is moderate concentric left ventricular hypertrophy. 5. Overall left ventricular systolic function is normal with, an EF between 60 - 65 %. 6. The right ventricle is normal in size. 7. LA is midly dilated 29-33ml/m2. 8. The right atrium is normal in size. 9. Aneurysmal Interatrial septum. 10. There is mild aortic valve sclerosis. 11. Mild mitral annular calcification present. 12. There is trace mitral regurgitation. 13. Mild tricuspid regurgitation present. 14. Right ventricular systolic pressure is normal at < 35 mmHg. 15. There is no pulmonic regurgitation present. 16. The aortic root size is normal. 17. Normal inferior vena cava with normal inspiratory collapse consistent with estimated right atrial pressure of 5 mmHg. 18. The inferior vena cava is mildly dilated. 19. There is no pericardial effusion. INTERNATIONAL ACCOUNT MANAGER: Lisa Powers RDCS
[2019-04-22] MEDS ORDERED: RX INFO: IV CONTRAST WAS GIVEN 1 EACH MISC MISCELLANE PRN (09:06)
[2019-04-22] MEDS ORDERED: NITROGLYCERIN SL TABS 0.4 MG TAB SUBLINGUAL PRN (09:06)
[2019-04-22] MEDS ORDERED: ATROPINE SULFATE 0.1 MG/ML 10ML SYRINGE IV PRN (09:06)
[2019-04-22] MEDS ORDERED: ZOLPIDEM 5 MG TAB PO PRN (09:06)
[2019-04-22] MEDS ORDERED: MAG HYDROX/AL HYDROX/SIMETH 30 ML CUP PO PRN (09:06)
[2019-04-22] MEDS ORDERED: SODIUM CHLORIDE 0.9% 1,000 ML IV SCH (09:15)
--- NOTE | 2019-04-22 09:29 | CC ---
CARDIAC CATHETERIZATION REPORT Mr. Butcher is a 58-year-old male with known history of hypertension, hyperlipidemia, diabetes mellitus, chronic tobacco use, who presented with symptoms of exertional chest discomfort, increasing frequency and intensity. In view of that, recommendation made regarding cardiac catheterization. The procedures, risks and complication were discussed with the patient who is in full understanding and agreement. PROCEDURE: Patient was brought to laboratory clerk in a fasting semi-sedated state after receiving fentanyl and Benadryl and achieving moderate conscious sedated state. Using Xylocaine anesthesia and Seldinger technique, a 6-Swedish sheath was introduced in the right radial artery. Selective right and left coronary angiography performed using 5- Swedish 3.5 bend right and left Teddy catheter, multiple views of the coronary artery including hemiaxial views were obtained. The right Teddy catheter was used to cross the aortic valve and left ventricular end-diastolic pressure was calculated. Following that, catheter was removed, images were reviewed.Of note the patient received intra-arterial verapamil. FINDINGS: LEFT MAIN: This is a short size vessel trifurcating into left circumflex, left anterior descending artery and ramus intermedius. Left main coronary artery has no evidence of high-grade stenosis. LEFT ANTERIOR DESCENDING ARTERY: This is a large-sized vessel, reaching toward the apex with a wraparound apex segment, giving rise to a moderately sized diagonal branch in the proximal segment. The diagonal branch has a 50% to 60% plaque. After the takeoff of diagonal branch, there is an eccentric 80% stenosis.Distally at the apex. there is a 95% stenosis. The rest of the vessel has intimal disease without any evidence of high-grade stenosis. LEFT CIRCUMFLEX: This is a codominant vessel giving rise distally to the right PDA and PLV. The left circumflex distally at the bifurcation has intimal disease predominantly involving the PLV up to 70%. The rest of the vessel has no high-grade stenosis. Beyond the stenosis the vessel caliber is small. RIGHT CORONARY ARTERY: 5his is a codominant vessel, small in caliber giving rise distally to a right PDA. The right coronary artery in the mid segment has a 90% to 99% stenosis. There is intimal disease in the proximal segment as well. The rest of the vessel is small in caliber, it has no evidence of high-grade stenosis. LEFT VENTRICULOGRAM: Left ventriculogram is not performed. HEMODYNAMICS: There was no gradient across the aortic valve the left ventricle end-diastolic pressure was 12 mmHg. CONCLUSION: 1.Significant stenosis involving the mid LAD and significant disease in a long segment of the right coronary artery in the mid and proximal mid segment. 2. Moderate to significant disease in the distal left circumflex. RECOMMENDATION: In view of the anatomy, I have recommended proceeding with angioplasty and stenting of the LAD and the right coronary artery. The procedures, risks. and complications were discussed with the patient who is in full understanding and agreement. TOMI / JAMES: [id number] / [place]
--- NOTE | 2019-04-22 09:41 | PTCA ---
PERCUTANEOUS CORONARY ANGIOGRAPHY ANGIOPLASTY PROCEDURE NOTE: Mr. Butcher is a 58-year-old male with known history of hypertension, hyperlipidemia, diabetes mellitus, prior history of smoking, who presented with symptoms of angina pectoris, underwent cardiac catheterization, was found to have critical stenosis involving the LAD and the left and the right coronary artery on study. In view of that, recommendation made regarding angioplasty and stenting the procedures risks and complication were discussed with the patient who is in full understanding and agreement. PROCEDURE: A 6-Estonian FL 3.5 guiding catheter was introduced in the system , after cannulating the left main, a 0.014 balanced medium weight J-wire was advanced across the lesion and positioned in the distal LAD , subsequently a 3.5 x 23 mm Xience Ivania stent was advanced, deployed and post dilated at 16 atmospheres. After the last inflation, after appropriate wait, the balloon and the guidewire were withdrawn back in the guiding catheter. Images were obtained repeated. those images reveal stable successful stenting. At that point, the guiding catheter, the balloon and the guidewire removed and a 6-Estonian FR4 guiding catheter was introduced in the system , after cannulating the right coronary ostium, a 0.014 balanced medium weight J-wire was advanced and positioned in the distal right coronary artery. Subsequently a 2.25 x 12 mm Trek balloon was advanced and multiple inflation at a maximum of 8 atmospheres were done, following that the balloon was removed and a 2.25 x 33 mm Xience Ivania stent was advanced, deployed and postdilated at 14 atmospheres. After removing that balloon, another 2.25 x 18 mm Xience Ivania stent was deployed proximal to the first one and post dilated at 16 atmospheres and after removing the balloon, another Xience Ivania stent 2.25 x 12 mm Xience Ivania stent was advanced distal to the first stent and deployed and postdilated at 14 atmospheres, after the last inflation, after appropriate wait the balloon and the guidewire were withdrawn back in the guiding catheter. Images were obtained and repeated. those images reveal stable successful stenting. At that point, the guiding catheter, the balloon and the guidewire were removed. The sheath was removed. Hemostasis was obtained with deployment of TR band. There was no immediate complication. Patient is returned to repair of his to his room in stable condition. Of note, the patient had chest discomfort and EKG changes with the inflation that resolved at the end procedure. He received Angiomax per protocol as well as oral loading dose of clopidogrel. Impression: 1. Successful stenting of the mid LAD with reduction of stenosis from 80% to 0% 2. Successful stenting of a long segment of the proximal mid right coronary artery with reduction of stenosis from 99% to 0%. RECOMMENDATION: Patient be continued on aspirin, Plavix and statin. The importance of dual antiplatelet rate in dual antiplatelet treatment was discussed with patient and the family in details. MMLAVERNL / IJN: [id number] / MTDTaqueria
[2019-04-22 11:18] VITALS: BMI 30.2
[2019-04-22] MEDS: HYDROcodone/APAP 5-325MG 1 EACH TAB PO PRN (11:29)
--- NOTE | 2019-04-22 14:37 | P.PN ---
Subjective Progress Note Date: 04/22/19 This is a 56-year-old male one of Dr. De La Garza and Dr. Moy. He has a past medical history for myocardial infarction in 2012 underwent heart catheterization that found left main without significant coronary artery disease, left anterior descending diagonal branch 30-40% plaque, LAD was mildly diffuse disease 20-40%, left circumflex no high-grade stenosis and no intervention done, scarlet fever, chronic back pain, was hospitalized back in 2016 for episode of chest pain while golfing, hyperlipidemia, diabetes mellitus2, remote history of tobacco use and dependence and quit in 2017. The patient states that starting a few days ago when he was seen at Dr. Tesfaye's office for carotid artery stenosis evaluation he was found to have a blood pressure 175/92. He then went to see Dr. Moy and admits that he has not seen him in some time. His blood pressure at that time was 131/78 and he was scheduled for heart catheterization on Sunday of this week. The patient states he went home and he was having chest pressure and tightness there is having trouble walking with fatigue, headache. His chest was pounding. He did check his blood pressure when he got home from work and the systolic was 187. He took a nap and checked it again and it was 194. After dinner it was 207 and then came into [facility] emergency center for evaluation. EKG reveals sinus rhythm with no acute ST or T-wave changes noted. Chest x-ray negative for acute cardiopulmonary process. CBC unremarkable, creatinine 0.43, potassium 4.0, magnesium 2.0. Troponins negative on 3 draws. ProBNP 55. He was found to have a blood pressure of 233/113. He was given a dose of norvasc in the emergency center, placed in the observation unit, cardiology consult was requested and patient started on losartan 50 mg daily. Patient is scheduled for heart catheterization tomorrow. 04/22: Echocardiogram reveals EF of 60-65% with moderate concentric left ventricular hypertrophy, mild aortic valve sclerosis, trace mitral regurgitation, mild tricuspid regurgitation. Patient underwent heart cath eterization with Dr. Moy revealing significant stenosis involving the mid LAD to long segment of the right coronary artery, moderate significant disease in the distal left circumflex. Patient underwent angioplasty and stenting of the LAD and right coronary artery. Patient has been transferred to the cardiac stepdown unit. He denies having any chest pain. He has been started on Plavix, atorvastatin increased to 80 mg Objective - Vital Signs Vital signs: Vital Signs Temp 97.8 F 04/22/19 07:00 Pulse 57 L 04/22/19 11:50 Resp 16 04/22/19 11:59 BP 165/81 04/22/19 11:50 Pulse Ox 95 04/22/19 09:55 Intake & Output 04/21/19 04/22/19 04/22/19 18:59 06:59 18:59 Intake Total 400 334 Balance 400 334 Weight 87.543 kg Intake: IV 334 Oral 400 Other: Voiding Method Toilet Toilet # Voids 3 1 - Exam Review of Systems Constitutional: Reports fatigue, Denies anorexia, Denies chills, Denies fever, Denies poor appetite Ears, nose, mouth and throat: Reports headache, Denies dysphagia, Denies nasal congestion, Denies nasal discharge, Denies vertigo Cardiovascular: Denies chest pain, Reports decreased exercise tolerance, Reports dyspnea on exertion, Denies edema, Denies leg edema, Denies lightheadedness, Denies orthopnea, Denies palpitations, Denies shortness of breath, Denies syncope Respiratory: Denies cough, Denies cough with sputum, Denies dyspnea, Denies excessive sputum, Denies hemoptysis, Denies wheezing Gastrointestinal: Denies abdominal pain, Denies diarrhea, Denies loss of appetite, Denies nausea, Denies vomiting Genitourinary: Denies dysuria, Denies urinary retention Musculoskeletal: Denies frequent falls, Denies gait dysfunction, Denies muscle weakness, Denies myalgias Integumentary: Denies pruritus, Denies rash, Denies wounds Neurological: Denies aphasia, Denies change in mentation, Denies change in speech, Denies numbness, Denies seizures, Denies weakness Psychiatric: Denies anxiety, Denies depression Endocrine: Denies fatigue, Denies weight change - Constitutional General appearance: average body habitus, no acute distress, sitting on the cardiac stepdown unit post procedure - EENT Eyes: anicteric sclerae, EOMI, PERRLA, no ptosis, no scleral icterus, normal appearance ENT: hearing grossly normal, NA/AT, normal oropharynx, no thrush Ears: bilateral: normal - Neck Neck: no lymphadenopathy, normal ROM, no rigidity, no stridor, no thyromegaly Carotids: bilateral: upstroke normal Thyroid: bilateral: normal size - Respiratory Respiratory: bilateral: diminished, negative: dullness, rales, rhonchi, wheezing, prolonged expiration - Cardiovascular Rhythm: regular Heart sounds: normal: S1, S2 Abnormal Heart Sounds: no systolic murmur, no S3 Gallop, no S4 Gallop - Gastrointestinal General gastrointestinal: normal bowel sounds, soft, no tenderness, no umbilical hernia, no ventral hernia - Integumentary Integumentary: normal, normal turgor - Neurologic Neurologic: CNII-XII intact - Musculoskeletal Musculoskeletal: strength equal bilaterally - Psychiatric Psychiatric: A&O x's 3, appropriate affect, intact judgment & insight - Labs CBC & Chem 7: 04/20/19 19:45 04/20/19 19:45 Labs: Abnormal Lab Results - Last 24 Hours (Table) 04/21/19 04/21/19 04/22/19 Range/Units 16:48 20:15 07:02 POC Glucose (mg/dL) 115 H 141 H 132 H (75-99) mg/dL Assessment and Plan Plan: 1. Chest pain and fatigue secondary to coronary artery disease status post heart catheterization and stenting of the LAD and RCA. Continue aspirin 81 mg daily, Lipitor increased to 80 mg daily, Plavix 75 mg daily. 2. Hypertensive emergency. Patient's been started on losartan 50 mg daily. 3. Diabetes mellitus type 2. Patient is normally on metformin 1000 mg at supper. Since held for heart catheterization scheduled for tomorrow. 4. Peripheral neuropathy secondary to . Continue degenerative disc disease and diabetes. Continue gabapentin 800 mg 3 times daily. 5. Hyperlipidemia. Continue atorvastatin 80 mg daily. 6. Remote history of tobacco use and dependence. Patient quit in 2017. 7. History of degenerative disc disease of the lumbar spine. 8. History of scarlet fever. Stable. Discharge plan: Home tomorrow Impression and plan of care have been directed as dictated by the signing physician. Rhianna Avelar nurse practitioner acting as scribe for signing physician.
[2019-04-22 20:33] VITALS: RESP 16; TEMP 98.1
[2019-04-22 20:59] LABS: Glucose,Whole Blood 178 mg/dL (75-99)
[2019-04-22] MEDS ORDERED: LOSARTAN 50 MG TAB PO SCH (21:00)
[2019-04-23] MEDS: GABAPENTIN 400 MG CAP PO SCH ×2 (03:14→11:32)
[2019-04-23] MEDS: HYDROcodone/APAP 5-325MG 1 EACH TAB PO PRN (03:18)
[2019-04-23 06:16] LABS: Glucose,Whole Blood 124 mg/dL (75-99)
[2019-04-23 06:22] LABS: African American GFR (CKD) >90 (>60 ml/min/1.73 sqM); Anion Gap 7 mmol/L; Blood Urea Nitrogen 15 mg/dL (9-20); Carbon Dioxide 26 mmol/L (22-30); Chloride 103 mmol/L (98-107); Glucose 126 mg/dL (74-99); Potassium 4.4 mmol/L (3.5-5.1); Sodium 136 mmol/L (137-145)
--- NOTE | 2019-04-23 08:13 | PN ---
PROGRESS NOTE Mr. Butcher is a 58-year-old male with a known history of diabetes, hypertension, hyperlipidemia, who presented with symptoms of chest discomfort, underwent cardiac catheterization, was found to have critical stenosis in the LAD and the RCA, underwent stenting of both vessels. He is feeling better today. His breathing is stable. He is denying any chest pain. He is ambulating without difficulty. He denies any dizziness or palpitation. He denies any nausea. He continues to be on aspirin once a day, Plavix 75 mg daily, Lipitor 80 mg daily, losartan 100 mg daily. PHYSICAL EXAMINATION: Blood pressure 147/70 with the heart rate in the 50s. LUNGS: Clear. HEART: Regular rate and rhythm. S1, S2. No S3. No rub. ABDOMEN: Soft, nontender. EXTREMITIES: No edema. Right radial pulse intact. LAB DATA: Labs data revealed a BUN and creatinine 15 and 0.83, potassium 4.4. His EKG revealed no acute changes. IMPRESSION: 1. Status post stenting of the left anterior descending artery and the right coronary artery. 2. Hypertension. 3. Hyperlipidemia. 4. Diabetes mellitus. RECOMMENDATION: Patient will be discharged home today. He will resume his metformin in 48 hours and he will be followed in the office in one week. MMODL / IJN: [id number] /
[2019-04-23] MEDS ORDERED: CLOPIDOGREL 75 MG TAB PO SCH (09:00)
[2019-04-23] MEDS ORDERED: ASPIRIN 81 MG PO SCH (09:00)
[2019-04-23] MEDS ORDERED: LOSARTAN 50 MG TAB PO SCH (09:00)
[2019-04-23] MEDS ORDERED: ATORVASTATIN 80 MG TAB PO SCH (09:00)
[2019-04-23 10:58] VITALS: BP 135/78; PULSE 66
--- NOTE | 2019-04-23 15:04 | P.DS ---
Providers Date of admission: 04/22/19 13:26 Expected date of discharge: 04/23/19 Attending physician: Gama Hooks Consults: 04/20/19 20:49 Consult Physician Routine Consulting Provider: Kiley Moy Consult Reason/Comments: chest pain Do you want consulting provider notified?: Yes 04/22/19 09:06 Consult Physician Routine Consulting Provider: [facility] Consult Reason/Comments: Post Interventional patient Do you want consulting provider notified?: Already Contacted Primary care physician: Ross De La Garza [facility] Course: This is a 56-year-old male one of Dr. De La Garza and Dr. Moy. He has a past medical history for myocardial infarction in 2012 underwent heart catheterization that found left main without significant coronary artery dise ase, left anterior descending diagonal branch 30-40% plaque, LAD was mildly diffuse disease 20-40%, left circumflex no high-grade stenosis and no intervention done, scarlet fever, chronic back pain, was hospitalized back in 2015 for episode of chest pain while golfing, hyperlipidemia, diabetes mellitus2, remote history of tobacco use and dependence and quit in 2017. The patient states that starting a few days ago when he was seen at Dr. Tesfaye's office for carotid artery stenosis evaluation he was found to have a blood pressure 175/92. He then went to see Dr. Moy and admits that he has not seen him in some time. His blood pressure at that time was 131/78 and he was scheduled for heart catheterization on Sunday of this week. The patient states he went home and he was having chest pressure and tightness there is having trouble walking with fatigue, headache. His chest was pounding. He did check his blood pressure when he got home from work and the systolic was 187. He took a nap and checked it again and it was 194. After dinner it was 207 and then came into [facility] emergency center for evaluation. EKG reveals sinus rhythm with no acute ST or T-wave changes noted. Chest x-ray negative for acute cardiopulmonary process. CBC unremarkable, creatinine 0.43, potassium 4.0, magnesium 2.0. Troponins negative on 3 draws. ProBNP 55. He was found to have a blood pressure of 233/113. He was given a dose of norvasc in the emergency center, placed in the observation unit, cardiology consult was requested and patient started on losartan 50 mg daily. Patient is scheduled for heart catheterization tomorrow. 04/22: Echocardiogram reveals EF of 60-65% with moderate concentric left ventricular hypertrophy, mild aortic valve sclerosis, trace mitral r egurgitation, mild tricuspid regurgitation. Patient underwent heart catheterization with Dr. Moy revealing significant stenosis involving the mid LAD to long segment of the right coronary artery, moderate significant disease in the distal left circumflex. Patient underwent angioplasty and stenting of the LAD and right coronary artery. Patient has been transferred to the cardiac stepdown unit. He denies having any chest pain. He has been started on Plavix, atorvastatin increased to 80 mg 04/23: Patient denies having any chest pain, shortness of breath. He has been ambulatory. No lightheadedness or dizziness. The patient was seen by admissions officer this morning and has been cleared for discharge. Patient will be discharged home today in stable condition. Discharge diagnoses: 1. Chest pain and fatigue secondary to coronary artery disease status post heart catheterization and stenting of the LAD and RCA. 2. Hypertensive emergency. 3. Diabetes mellitus type 2. 4. Peripheral neuropathy secondary to . 5. Hyperlipidemia. 6. Remote history of tobacco use and dependence. Patient quit in 2017. 7. History of degenerative disc disease of the lumbar spine. 8. History of scarlet fever. Stable. Discharge plan: Home Impression and plan of care have been directed as dictated by the signing physician. Rhianna Avelar nurse practitioner acting as scribe for signing physician. Patient Condition at Discharge: Good Plan - Discharge Summary New Discharge Prescriptions: New Losartan [Cozaar] 100 mg PO DAILY #90 tab Nitroglycerin Sl Tabs [Nitrostat] 0.4 mg SUBLINGUAL Q5M PRN #25 tab PRN Reason: Chest Pain Clopidogrel [Plavix] 75 mg PO DAILY #90 tab Continue Gabapentin [Neurontin] 800 mg PO TID metFORMIN HCL 1,000 mg PO PC-SUPPER Aspirin [Adult Low Dose Aspirin EC] 81 mg PO DAILY Changed Atorvastatin [Lipitor] 80 mg PO DAILY #0 Discontinued Ibuprofen [Motrin] 800 mg PO TID Discharge Medication List Gabapentin [Neurontin] 800 mg PO TID 01/26/16 [History] metFORMIN HCL 1,000 mg PO PC-SUPPER 12/19/18 [History] Aspirin [Adult Low Dose Aspirin EC] 81 mg PO DAILY 04/16/19 [History] Atorvastatin [Lipitor] 80 mg PO DAILY #0 04/23/19 [Rx] Clopidogrel [Plavix] 75 mg PO DAILY #90 tab 04/23/19 [Rx] Losartan [Cozaar] 100 mg PO DAILY #90 tab 04/23/19 [Rx] Nitroglycerin Sl Tabs [Nitrostat] 0.4 mg SUBLINGUAL Q5M PRN #25 tab 04/23/19 [Rx] Follow up Appointment(s)/Referral(s): Kiley Moy MD [STAFF PHYSICIAN] - 1 Week (Spoke to hydroelectric mechanic. Office will call with appointent time) Ross De La Garza DO [Primary Care Provider] - 05/22/19 3:45 pm ( -earliest available appointment (already scheduled)) Patient Instructions/Handouts: *Surgery [facility] - After Heart Catheterization - Gas Maker Instructions, After Radial Heart Catheterization (GEN) Activity/Diet/Wound Care/Special Instructions: Resume Metformin in 48 hours. Discharge Disposition: HOME SELF-CARE
--- NOTE | 2019-04-24 12:58 | CDI ---
Documentation Clarification Form Date: 04/24/19 From: Mariola Healy Phone: If you have a question regarding this query, please contact Mallory Mathews at [phone] between 8am and 5pm. Admit Date: 04/22/2019 1:26:00 PM Patient Name: Giacomo Butcher Visit Number: [id number] Discharge Date: 04/23/2019 12:03:00 PM ATTENTION: The Clinical Documentation Specialists (CDI) and [facility] Coding Staff appreciate your assistance in clarifying documentation. Please respond to the clarification below the line at the bottom and electronically sign. The CDI & [facility] Coding staff will review the response and follow-up if needed. Please note: Queries are made part of the Legal Health Record. If you have any questions, please contact the author of this message via ITS. Dr. Angel Grubbs Chest pain secondart to coronary artery disease is documented in the discharge summary. Patient C/O: Chest pain History/Risk factors: Nonobstructive coronary artery disease, hypertensive emergency, hyperlipidemia, history of [facility] Clinical Indicators: Chest pressure and tightness, trouble walking, fatigue Labs: Troponin < 0.012 times 3 Treatment: Cardiac cath with PTCA Consults: Cardiology documented unstable angina In your professional opinion, can please clarify if the chest pain signifies, or is due to: Chest pain Unstable angina Other condition, please specify Unable to determine SEE DISCHARGE SUMMARY ALREADY COMPLETED: Chest pain and fatigue secondary to coronary artery disease status post heart catheterization and stenting of the LAD and RCA. [place]
== END 2019-04-23 12:03 | disposition home or self-care (01) | DRG 246 ==
LOC: EC 19:26 → 1SOBS 20:48 → 3SCARD 04-22 08:49 → OBSVTOIN 04-22 13:26
PROVIDERS: ADMIT Internal Medicine; ATTEND Internal Medicine
PROC: 027137Z Dilation of Coronary Artery, Two Arteries with Four or More Drug-eluting Intraluminal Devices, Percutaneous Approach (ICD-10-PCS; principal; 2019-04-22 07:30)
PROC: 4A023N7 Measurement of Cardiac Sampling and Pressure, Left Heart, Percutaneous Approach (ICD-10-PCS; 2019-04-22 07:30)
PROC: B2111ZZ Fluoroscopy of Multiple Coronary Arteries using Low Osmolar Contrast (ICD-10-PCS; 2019-04-22 07:30)
DX: I25.10 Atherosclerotic heart disease of native coronary artery without angina pectoris (principal); I16.1 Hypertensive emergency; E11.42 Type 2 diabetes mellitus with diabetic polyneuropathy; I08.2 Rheumatic disorders of both aortic and tricuspid valves; I11.9 Hypertensive heart disease without heart failure; R07.9 Chest pain, unspecified; E78.5 Hyperlipidemia, unspecified; I25.2 Old myocardial infarction; J45.909 Unspecified asthma, uncomplicated; M19.90 Unspecified osteoarthritis, unspecified site; M51.36 Other intervertebral disc degeneration, lumbar region; G89.29 Other chronic pain; M54.9 Dorsalgia, unspecified; Z79.82 Long term (current) use of aspirin; Z79.84 Long term (current) use of oral hypoglycemic drugs; Z79.899 Other long term (current) drug therapy; Z88.0 Allergy status to penicillin; Z87.891 Personal history of nicotine dependence; Z80.8 Family history of malignant neoplasm of other organs or systems; Z82.49 Family history of ischemic heart disease and other diseases of the circulatory system; Z82.5 Family history of asthma and other chronic lower respiratory diseases
CPT/HCPCS: 36415; 71046; 80048; 80053; 83735; 83880; 84484; 85025; 85347; 85610; 85730; 93005; 93306; 93458; 99285; C1874